=== PATIENT | female | born 1960 | race Caucasian/White ===

== ENCOUNTER 2016-09-16 21:45 | Emergency (ER) | payer SELFPAY | END 2016-09-16 23:11 | disposition left against medical advice (07) | LOC: ER 21:45 | DX: Z53.21 Procedure and treatment not carried out due to patient leaving prior to being seen by health care provider (principal) ==

== ENCOUNTER 2016-12-29 16:50 | Emergency (ER) | payer SELFPAY ==
[2016-12-29] MEDS ORDERED: ASPIRIN 81 MG TABLET, CHEWABLE PO ONE (17:12)
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
--- NOTE | 2016-12-29 18:06 | EKG REPORT ---
SEVERITY:- OTHERWISE NORMAL ECG - SINUS RHYTHM LOW VOLTAGE IN FRONTAL LEADS : Confirmed by: Ravi Cook MD 29-Dec-2016 18:05:43
[2016-12-29 18:28] LABS: ABSOLUTE BASOPHILS # (AUTO) 0.1 10^3/uL (0.0-0.2); ABSOLUTE EOSINOPHILS # (AUTO) 0.1 10^3/uL (0.0-0.6); ABSOLUTE LYMPHOCYTES (AUTO) 2.2 10^3/uL (0.5-4.7); ABSOLUTE MONOCYTES (AUTO) 0.6 10^3/uL (0.1-1.4); ABSOLUTE NEUT (AUTO) 7.2 10^3/uL (1.7-8.2); BASOPHILS % (AUTO) 0.8 % (0-2); EOSINOPHILS % (AUTO) 1.2 % (0-6); HEMATOCRIT 39.6 % (36.0-47.0); HEMOGLOBIN 13.8 g/dL (12.0-15.5); HGB HCT DIFFERENCE 1.8; LYMPHOCYTES % (AUTO) 21.4 % (13-45); MEAN CORPUSCULAR HEMOGLOBIN 31.5 pg (27.0-33.4); MEAN CORPUSCULAR HGB CONC 34.9 g/dL (32.0-36.0); MEAN CORPUSCULAR VOLUME 90 fl (80-97); MONOCYTES % (AUTO) 5.7 % (3-13); RED BLOOD COUNT 4.39 10^6/uL (3.72-5.28); RED CELL DISTRIBUTION WIDTH 13.4 % (11.5-14.0); SEGMENTED NEUTROPHILS % (AUTO) 70.9 % (42-78); WHITE BLOOD COUNT 10.2 10^3/uL (4.0-10.5)
[2016-12-29 18:37] LABS: PROTHROMBIN TIME 12.7 SEC (11.4-15.4)
[2016-12-29 18:48] LABS: ALANINE AMINOTRANSFERASE 26 U/L (9-52); ALBUMIN 4.3 g/dL (3.5-5.0); ALKALINE PHOSPHATASE 91 U/L (38-126); ANION GAP 12 (5-19); ASPARTATE AMINO TRANSFERASE 19 U/L (14-36); BILIRUBIN,DIRECT 0.1 mg/dL (0.0-0.4); BILIRUBIN,TOTAL 0.8 mg/dL (0.2-1.3); BLOOD UREA NITROGEN 12 mg/dL (7-20); CALCIUM 9.4 mg/dL (8.4-10.2); CARBON DIOXIDE 26 mmol/L (22-30); CHLORIDE 104 mmol/L (98-107); CREATINE KINASE 41 U/L (30-135); CREATININE RESULT 0.57 mg/dL (0.52-1.25); GLUCOSE 99 mg/dL (75-110); POTASSIUM 3.8 mmol/L (3.6-5.0); SODIUM 142.4 mmol/L (137-145); TOTAL PROTEIN 7.1 g/dL (6.3-8.2)
[2016-12-29 19:00] LABS: CREATINE KINASE MB < 0.22 ng/mL (<4.55); TROPONIN I < 0.012 ng/mL
[2016-12-29] MEDS ORDERED: ACETAMINOPHEN WITH CODEINE 120-12 MG/5 ML UDCUP PO ONE (19:09)
[2016-12-29] MEDS ORDERED: KETOROLAC TROMETHAMINE 60 MG/2 ML SDV IV ONE (20:00)
[2016-12-29 20:37] VITALS: BP 139/88
== END 2016-12-29 20:25 | disposition home or self-care (01) ==
LOC: ER 16:50
DX: R07.9 Chest pain, unspecified (principal); R07.89 Other chest pain; M54.5 Low back pain; F17.210 Nicotine dependence, cigarettes, uncomplicated; V87.7XXA Person injured in collision between other specified motor vehicles (traffic), initial encounter
CPT/HCPCS: 36415; 71010; 80053; 82550; 82553; 84484; 85025; 85610; 93005; 93010; 99285; J3490

== ENCOUNTER 2017-09-14 16:51 | Emergency (ER) | payer SELFPAY ==
[2017-09-14 17:08] VITALS: BP 143/77
[2017-09-14] MEDS ORDERED: NORMAL SALINE 1000 ML 1,000 ML IV ONE (18:30)
--- NOTE | 2017-09-14 18:31 | ER Document Report ---
ED Medical Screen (RME) - General Chief Complaint: Vomiting Stated Complaint: DIZZY, VOMITING Time Seen by Provider: 09/14/17 18:29 Information source: Patient Notes: 57-year-old female who presents today with the onset yesterday of a mild frontal headache and some "dizziness". When I asked her to describe this she explains both lightheadedness and vertigo. She denies any blurry vision, neck pain, chest pain, abdominal pain, weakness or numbness. She does state some nausea and vomiting without diarrhea. TRAVEL OUTSIDE OF THE [place] IN LAST 30 DAYS: No - Related Data Allergies/Adverse Reactions: No Known Allergies Allergy (Verified 09/14/17 16:52) Past Medical History - Past Medical History Cardiac Medical History: Reports: Hx Hypertension - not taking meds Pulmonary Medical History: Reports: Hx Bronchitis, Hx COPD Renal/ Medical History: Denies: Hx Peritoneal Dialysis Musculoskeltal Medical History: Reports Hx Arthritis Psychiatric Medical History: Reports: Hx Depression Past Surgical History: Reports: Hx Gynecologic Surgery - part of cervix, Hx Hysterectomy - partial - Immunizations Hx Diphtheria, Pertussis, Tetanus Vaccination: Yes Physical Exam - Vital signs Vitals: Temp Pulse Resp BP Pulse Ox 98.5 F 73 20 143/77 H 98 09/14/17 17:05 09/14/17 17:05 09/14/17 17:05 09/14/17 17:05 09/14/17 17:05 Course - Vital Signs Vital signs: Temp Pulse Resp BP Pulse Ox 98.5 F 73 20 143/77 H 98 09/14/17 17:05 09/14/17 17:05 09/14/17 17:05 09/14/17 17:05 09/14/17 17:05
--- NOTE | 2017-09-14 18:43 | ER Document Report ---
ED Medical Screen (RME) - General Chief Complaint: Vomiting Stated Complaint: DIZZY, VOMITING Time Seen by Provider: 09/14/17 18:29 Information source: Patient Notes: 57-year-old female who presents today with the onset yesterday of a mild frontal headache and some "dizziness". When I asked her to describe this she explains both lightheadedness and vertigo. She denies any blurry vision, neck pain, chest pain, abdominal pain, weakness or numbness. She does state some nausea and vomiting without diarrhea. TRAVEL OUTSIDE OF THE [place] IN LAST 30 DAYS: No - HPI Onset: Other - See above Onset/Duration: Gradual Quality of pain: Achy Severity: Mild Pain Level: 1 Associated Symptoms: Other - See above Exacerbated by: Denies Relieved by: Denies Similar symptoms previously: Yes Recently seen / treated by doctor: No - Related Data Allergies/Adverse Reactions: No Known Allergies Allergy (Verified 09/14/17 16:52) Past Medical History - General Information source: Patient - Social History Cigarette use (# per day): No Chew tobacco use (# tins/day): No Frequency of alcohol use: None Drug Abuse: None Family history: CVA - Past Medical History Cardiac Medical History: Reports: Hx Hypertension - not taking meds Pulmonary Medical History: Reports: Hx Bronchitis, Hx COPD Renal/ Medical History: Denies: Hx Peritoneal Dialysis Musculoskeltal Medical History: Reports Hx Arthritis Psychiatric Medical History: Reports: Hx Depression Past Surgical History: Reports: Hx Gynecologic Surgery - part of cervix, Hx Hysterectomy - Immunizations Hx Diphtheria, Pertussis, Tetanus Vaccination: Yes Review of Systems - Review of Systems Constitutional: denies: Fever EENT: denies: Eye discharge, Nose discharge Cardiovascular: denies: Chest pain, Palpitations Respiratory: denies: Cough, Short of breath Gastrointestinal: Vomiting Genitourinary: denies: Dysuria Musculoskeletal: denies: Leg swelling Skin: Other - no hives. denies: Rash -: Yes All other systems reviewed and negative Physical Exam - Vital signs Vitals: Temp Pulse Resp BP Pulse Ox 98.5 F 73 20 143/77 H 98 09/14/17 17:05 09/14/17 17:05 09/14/17 17:05 09/14/17 17:05 09/14/17 17:05 Notes: Reviewed vital signs and nursing note as charted by RN. CONSTITUTIONAL: Alert and oriented and responds appropriately to questions. Well -appearing; well-nourished HEAD: Normocephalic; atraumatic EYES: PERRL; Conjunctivae clear, sclerae non-icteric ENT: Normal nose; no rhinorrhea; moist mucous membranes; pharynx without lesions noted NECK: Supple without meningismus; carotid bruit; non-tender; no cervical lymphadenopathy, no masses CARD: Regular rate and rhythm; no murmurs RESP: Normal chest excursion without splinting or tachypnea; breath sounds clear and equal bilaterally ABD/GI: Normal bowel sounds; non-distended; soft, non-tender BACK: The back appears normal and is non-tender to palpation, there is no CVA tenderness EXT: Normal ROM in all joints; non-tender to palpation; no cyanosis, no effusions, no edema SKIN: No acute lesions noted NEURO: CN II through XII are intact. Patient has 5 out of 5 bilateral upper and lower extremity strength with sensation intact light touch. No nystagmus. Normal finger to nose Course - Re-evaluation Re-evalutation: 09/14/17 18:40 Given the above history and physical examination, I would like to rule out the possibility of a CVA causing the vertigo as well as an EKG, basic labs, with reassessment. Patient is very upset that she had a weight in the waiting room greater than 1 hour. She feels that she would like to be in a room and not in the triage room. I have explained to her that this helps expedite the process so when a room is ready laboratory values and imaging already. Patient states that she knows that she has "vertigo" she has had this before. I have explained to her that I would like to rule out the possibility of a more serious concern given the signs and symptoms of vertigo that often mimic a posterior stroke. I have explained to her that if the workup is unremarkable, I will indeed treat her for vertigo. Despite our attempts to make the patient stay for complete workup she is leaving AGAINST MEDICAL ADVICE. She understands the risks and benefits. Patient is oriented 4 and has capacity to make this decision in my judgment. She has been welcomed to return at any time that she would like for further assessment. - Vital Signs Vital signs: Temp Pulse Resp BP Pulse Ox 98.5 F 73 20 143/77 H 98 09/14/17 17:05 09/14/17 17:05 09/14/17 17:05 09/14/17 17:05 09/14/17 17:05 Doctor's Discharge - Discharge Clinical Impression: Dizziness Vomiting Qualifiers: Vomiting type: unspecified Vomiting Intractability: non-intractable Nausea presence: with nausea Qualified Code(s): R11.2 - Nausea with vomiting, unspecified Condition: Fair Disposition: AGAINST MEDICAL ADVICE Additional Instructions: Please feel free to return at anytime that you would like for further assessment and evaluation. Please make sure you follow-up with your primary care physician as we have discussed. Prescriptions: Meclizine HCl [Antivert 25 mg Tablet] 25 mg PO TID PRN #21 tablet PRN Reason:
--- NOTE | 2017-09-17 09:30 | EKG REPORT ---
SEVERITY:- NORMAL ECG - SINUS RHYTHM : Confirmed by: Bay Nazario 17-Sep-2017 09:29:09
== END 2017-09-14 18:45 | disposition left against medical advice (07) ==
LOC: ER 16:51
DX: R42 Dizziness and giddiness (principal); R51 Headache; R11.2 Nausea with vomiting, unspecified; I10 Essential (primary) hypertension; J44.9 Chronic obstructive pulmonary disease, unspecified
CPT/HCPCS: 93005; 93010; 99284

== ENCOUNTER 2017-09-15 16:18 | Emergency (ER) | payer SELFPAY ==
[2017-09-15 17:02] VITALS: BP 168/78
[2017-09-15] MEDS ORDERED: MECLIZINE HCL 25 MG TABLET PO ONE (17:05)
[2017-09-15] MEDS ORDERED: ONDANSETRON 4 MG TAB.RAPDIS PO ONE (17:05)
--- NOTE | 2017-09-15 17:09 | ER Document Report ---
ED Medical Screen (E) - General Chief Complaint: Nausea/Vomiting Stated Complaint: NAUSEA AND VOMITING Time Seen by Provider: 09/15/17 16:58 Notes: This 57-year-old female patient comes emergency room complaining of nausea vomiting dizziness. She was seen here last night for this, seen in the [facility] area. She did have a prescription of meclizine written. She did refused to have a workup for possible posterior circulation stroke. He was certain it was just vertigo according to the records from last night. She did get a prescription for meclizine but did not fill it and has been taking nothing. She is complaining about her symptoms getting worse, but does admit that she is taking nothing for it. She states when she turns her head the dizziness gets much worse. She seemed to be a difficult, very angry person. I have greeted and performed a rapid initial assessment of this patient. A comprehensive ED assessment and evaluation of the patient, analysis of test results and completion of the medical decision making process will be conducted by additional ED providers. TRAVEL OUTSIDE OF THE [place] IN LAST 30 DAYS: No - Related Data Allergies/Adverse Reactions: No Known Allergies Allergy (Verified 09/15/17 16:23) Past Medical History - Social History Chew tobacco use (# tins/day): No Frequency of alcohol use: None Drug Abuse: None Family history: CVA - Past Medical History Cardiac Medical History: Reports: Hx Hypertension - not taking meds Pulmonary Medical History: Reports: Hx Bronchitis, Hx COPD Renal/ Medical History: Denies: Hx Peritoneal Dialysis Musculoskeltal Medical History: Reports Hx Arthritis Psychiatric Medical History: Reports: Hx Depression Past Surgical History: Reports: Hx Gynecologic Surgery - part of cervix, Hx Hysterectomy - Immunizations Hx Diphtheria, Pertussis, Tetanus Vaccination: Yes Physical Exam - Vital signs Vitals: Temp Pulse Resp BP Pulse Ox 98.5 F 70 18 168/78 H 99 09/15/17 17:01 09/15/17 17:01 09/15/17 17:01 09/15/17 17:01 09/15/17 17:01 Course - Vital Signs Vital signs: Temp Pulse Resp BP Pulse Ox 98.5 F 70 18 168/78 H 99 09/15/17 17:01 09/15/17 17:01 09/15/17 17:01 09/15/17 17:01 09/15/17 17:01
--- NOTE | 2017-09-15 19:29 | ER Document Report ---
ED General - General Chief Complaint: Nausea/Vomiting Stated Complaint: NAUSEA AND VOMITING Time Seen by Provider: 09/15/17 16:58 TRAVEL OUTSIDE OF THE [place] IN LAST 30 DAYS: No - HPI Notes: Patient is a 57-year-old female with a history of hypertension who presents the ED complaining of 2 days of feeling dizzy, nausea/vomiting without abdominal pain, and a right frontal mild headache. Patient was evaluated yesterday while in the ED and left AMA. The provider yesterday wanted to perform labs and imaging to rule out posterior CVA and other etiologies before diagnosing vertigo , but patient declined. Patient returns today stating that her dizziness has increased she has not been able to keep any fluids or food down. Patient states that she is still urinating and having normal bowel movements. Patient states that she has occasional nasal congestion patient states that the dizziness is worse with. Sitting and standing, and is improved with lying down. Patient states that she did have some medicine when she arrived to the ED today, Zofran and meclizine, which helped. Patient states that she is open to having testing performed today. She denies any drug allergies. Denies any cardiac history, CVA, TIA, cancer, blood clots. Denies any fever, head injury, neck pain, changes in vision/speech/mentation/hearing, sore throat, chest pain, palpitations, syncope, cough, shortness of breath, wheeze, dyspnea, abdominal pain, nausea/vomiting/diarrhea, urinary retention, dysuria, hematuria, loss of control of bowel or bladder, numbness/tingling, saddle anesthesia, muscle paralysis/weakness, or rash. - Related Data Allergies/Adverse Reactions: No Known Allergies Allergy (Verified 09/15/17 16:23) Past Medical History - Social History Smoking Status: Never Smoker Chew tobacco use (# tins/day): No Frequency of alcohol use: None Drug Abuse: None Family History: Reviewed & Not Pertinent Patient has suicidal ideation: No Patient has homicidal ideation: No - Past Medical History Cardiac Medical History: Reports: Hx Hypertension - not taking meds Pulmonary Medical History: Reports: Hx Bronchitis, Hx COPD Renal/ Medical History: Denies: Hx Peritoneal Dialysis Musculoskeltal Medical History: Reports Hx Arthritis Psychiatric Medical History: Reports: Hx Depression Past Surgical History: Reports: Hx Gynecologic Surgery - part of cervix, Hx Hysterectomy - Immunizations Hx Diphtheria, Pertussis, Tetanus Vaccination: Yes Review of Systems - Review of Systems Notes: REVIEW OF SYSTEMS: CONSTITUTIONAL : Denies fever, chills, or sweats. Denies recent illness. EENT: see hpi CARDIOVASCULAR: Denies chest pain. Denies palpitations or racing or irregular heart beat. Denies ankle edema. RESPIRATORY: Denies cough, cold, or chest congestion. Denies shortness of breath, difficulty breathing, or wheezing. GASTROINTESTINAL: see hpi GENITOURINARY: Denies difficulty urinating, painful urination, burning, frequency, blood in urine, or discharge. MUSCULOSKELETAL: Denies back or neck pain or stiffness. Denies joint pain or swelling. SKIN: Denies rash, lesions or sores. NEUROLOGICAL: see hpi. Denies confusion or altered mental status. Denies passing out or loss of consciousness. Denies weakness or paralysis or loss of use of either side. Denies problems with gait or speech. Denies sensory loss, numbness, or tingling. Denies seizures. PSYCHIATRIC: Denies anxiety or stress. Denies depression, suicidal ideation, or homicidal ideation. ALL OTHER SYSTEMS REVIEWED AND NEGATIVE. Dictation was performed using [employer] voice recognition software Physical Exam - Vital signs Vitals: Temp Pulse Resp BP Pulse Ox 98.5 F 70 18 168/78 H 99 09/15/17 17:01 09/15/17 17:01 09/15/17 17:01 09/15/17 17:01 09/15/17 17:01 Notes: PHYSICAL EXAMINATION: GENERAL: Well-appearing, well-nourished and in no acute distress. A&Ox4 HEAD: Atraumatic, normocephalic. Non-tender. No martin sign EYES: Pupils equal round and reactive to light, extraocular movements intact, sclera anicteric, conjunctiva are normal. No nystagmus. vis goodman intact. ENT: EAC clear b/l. TM's intact b/l without erythema, fluid, or perforation. Nares patent and without discharge. oropharynx clear without exudates. No tonsilar hypertrophy or erythema. Moist mucous membranes. No sinus tenderness. NECK: Normal range of motion, supple without lymphadenopathy. No rigidity. No midline tenderness. Spurling negative. LUNGS: Breath sounds clear to auscultation bilaterally and equal. No wheezes rales or rhonchi. HEART: Regular rate and rhythm without murmurs, rubs, gallops. ABDOMEN: Soft, nontender, nondistended abdomen. No guarding, no rebound. No masses appreciated. Normal bowel sounds present. No CVA tenderness bilaterally. Musculoskeletal: Ext b/l: FROM to passive/active. Strength 5+/5. No deficits noted. No bony tenderness of extremities. Back: FROM to passive/active. Strength 5+/5. No vertebral point tenderness, stepoffs, or deformities. No other bony tenderness or ecchymosis. Extremities: No cyanosis, clubbing, or edema b/l. Peripheral pulses 2+. Capillary refill less than 2 seconds. NEUROLOGICAL: GCS 15. NIH 0. MMSE intact. Cranial nerves grossly intact. Normal speech, normal gait. Normal sensory, motor exams. Reflexes 2+ b/l. SARINA' s negative. Pronator drift negative. Heel/miller, finger/nose wnl. PSYCH: Normal mood, normal affect. SKIN: Warm, Dry, normal turgor, no rashes or lesions noted. Course - Re-evaluation Re-evalutation: 09/15/17 21:18 Patient is an afebrile, well-hydrated, 57-year-old female who presents to the ED with vertigo, possible gastroenteritis, and acute UTI based on H&P today. Vitals are stable. PE is otherwise unremarkable. Pt is tolerating PO and has not vomited while in the ED. Her abdominal exam was unremarkable. Patient has no focal neurological deficits, GCS 15, MMSE intact, & NIH 0. CT scan of the head was unremarkable for acute pathology. EKG, CBC, CMP, lipase unremarkable for any acute pathology. See urinalysis results. Urine culture is pending. Patient was given 2 L normal saline today as well as Zofran and meclizine. Patient does have a prescription at home for her meclizine. Rocephin 1 g given IV today along with her first dose of Keflex. Low suspicion for any acute glaucoma, temporal arteritis, meningitis, intracranial hemorrhage, ischemic stroke, fracture, acute appendicitis, bowel obstruction, acute cholecystitis, acute cholangitis, perforated diverticulitis, incarcerated hernia, pancreatitis , perforated ulcer, peritonitis, sepsis, pelvic inflammatory disease, ectopic , tubo-ovarian abscess, ovarian torsion, or other systemic emergent condition at this time. Patient is aware that her condition can change from initial presentation and she needs to monitor symptoms closely and seek medical attention if any acute changes. I will send her home with a Rx for Keflex to take as directed. Conservative measures otherwise for symptoms. Recheck with your PCM in 3-5 days. Consider consult with a publicity writer. Return to the ED with any worsening/concerning symptoms otherwise as reviewed in discharge. Patient is in agreement. Reviewed with Dr. Veliz who is in agreement with discharge/plan. - Vital Signs Vital signs: Temp Pulse Resp BP Pulse Ox 98.5 F 70 18 168/78 H 99 09/15/17 17:01 09/15/17 17:01 09/15/17 17:01 09/15/17 17:01 09/15/17 17:01 - Laboratory Result Diagrams: 09/15/17 20:20 09/15/17 20:20 Laboratory results interpreted by me: 09/15/17 09/15/17 09/15/17 20:20 20:20 20:20 Seg Neutrophils % 83.2 H Monocytes % 2.5 L Glucose 115 H Calcium 10.5 H Urine Protein 100 H Urine Ketones 20 H Urine Urobilinogen 4.0 H Ur Leukocyte Esterase TRACE H Discharge - Discharge Clinical Impression: Acute UTI, Vertigo, Gastroenteritis Condition: Stable Disposition: HOME, SELF-CARE Instructions: Antinausea Medication ([facility]), Cephalexin ([facility]), Gastroenteritis ( adult) ([facility]), Urinary Tract Infection ([facility]), Vertigo ([facility]), Vomiting ([facility]) Additional Instructions: Push fluids (i.e. water, cranberry juice) Proper hygenic technique Fraser diet (Bananas, rice, apples, toast, etc) Keep the skin clean Tylenol as needed May use over the counter AZO for burning with urination Take medications as directed F/u with your PCM in 3-5 days for a recheck Consider consult with a Urologist/Neurologist for ongoing/worsening symptoms. Return to the ED with any worsening symptoms and/or development of fever, headache, chest pain, palpitations, syncope, shortness of breath, trouble breathing, abdominal pain, n/v/d, blood in stool/urine, loss of control of bowel /bladder, urinary retention, or other worsening symptoms that are concerning to you. Prescriptions: Cephalexin Monohydrate [Keflex 500 mg Capsule] 500 mg PO BID #14 capsule Ondansetron [Zofran Odt 4 mg Tablet] 1 - 2 tab PO Q4H PRN #15 tab.rapdis PRN Reason: For Nausea/Vomiting Forms: Elevated Blood Pressure Referrals: FLORES FERREIRA MD [[facility]] - Follow up as needed [facility] [Provider Group] - Follow up as needed
--- NOTE | 2017-09-15 20:26 | RADIOLOGY REPORT (SQ) ---
EXAM DESCRIPTION: CT HEAD WITHOUT COMPLETED DATE/TIME: 09/15/2017 8:14 pm REASON FOR STUDY: dizziness COMPARISON: June 2016 TECHNIQUE: Axial images acquired through the brain without intravenous contrast. Images reviewed wi th bone, brain and subdural windows. Images stored on PACS. All CT scanners at this facility use dose modulation, iterative reconstruction, and/or weight based d osing when appropriate to reduce radiation dose to as low as reasonably achievable (ALARA). [facility]: Dose Right [facility]: CareDose [facility]: Dose Right [facility]: Teradose 4D [facility]: Sphere [employer]uidics RADIATION DOSE: CT Rad equipment meets quality standard of care and radiation dose reduction techniq ues were employed. CTDIvol: 64.6 mGy. DLP: 1034 mGy-cm. mGy. LIMITATIONS: None. FINDINGS: VENTRICLES: Normal size and contour. CEREBRUM: No masses. No hemorrhage. No midline shift. No evidence for acute infarction. Normal gra y/white matter differentiation. No areas of low density in the white matter. CEREBELLUM: No masses. No hemorrhage. No alteration of density. No evidence for acute infarction. EXTRAAXIAL SPACES: No fluid collections. No masses. ORBITS AND GLOBE: No intra- or extraconal masses. Normal contour of globe without masses. CALVARIUM: No fracture. PARANASAL SINUSES: Mucosal polyp retention cyst is identified in the left maxillary antra. SOFT TISSUES: No mass or hematoma. OTHER: No other significant finding. IMPRESSION: NORMAL BRAIN CT WITHOUT CONTRAST. EVIDENCE OF ACUTE STROKE: NO. COMMENT: Quality ID # [id number]: Final reports with documentation of one or more dose reduction techniques (e.g., Automated exposure control, adjustment of the mA and/or kV according to patient size, use of iterative reconstruction technique) TECHNICAL DOCUMENTATION: JOB ID: [id number]- All Rights Reserved
[2017-09-15] MEDS ORDERED: NORMAL SALINE 1000 ML 1,000 ML IV PRN (20:32)
[2017-09-15 20:43] LABS: ABSOLUTE LYMPHOCYTES (AUTO) 1.3 10^3/uL (0.5-4.7); ABSOLUTE MONOCYTES (AUTO) 0.2 10^3/uL (0.1-1.4); BASOPHILS % (AUTO) 0.5 % (0-2); EOSINOPHILS % (AUTO) 0.1 % (0-6); HEMATOCRIT 44.7 % (36.0-47.0); HEMOGLOBIN 15.4 g/dL (12.0-15.5); LYMPHOCYTES % (AUTO) 13.7 % (13-45); MEAN CORPUSCULAR HEMOGLOBIN 31.4 pg (27.0-33.4); MEAN CORPUSCULAR HGB CONC 34.4 g/dL (32.0-36.0); MEAN CORPUSCULAR VOLUME 91 fl (80-97); MONOCYTES % (AUTO) 2.5 % (3-13); PLATELET COUNT 227 10^3/uL (150-450); RED BLOOD COUNT 4.89 10^6/uL (3.72-5.28); RED CELL DISTRIBUTION WIDTH 13.1 % (11.5-14.0); SEGMENTED NEUTROPHILS % (AUTO) 83.2 % (42-78); TOTAL CELLS COUNTED % (AUTO) 100 %; WHITE BLOOD COUNT 9.6 10^3/uL (4.0-10.5)
[2017-09-15 20:57] LABS: APPEARANCE,URINE CLOUDY; BILIRUBIN,URINE NEGATIVE (NEGATIVE); GLUCOSE, URINE NEGATIVE (NEGATIVE); KETONES,URINE 20 mg/dL (NEGATIVE); LEUKOCYTE ESTERASE,URINE TRACE (NEGATIVE); NITRITE,URINE NEGATIVE (NEGATIVE); PROTEIN,URINE 100 mg/dL (NEGATIVE); URINE SPECIFIC GRAVITY 1.019
[2017-09-15 21:01] LABS: COLOR,URINE DARK YELLOW
[2017-09-15 21:07] LABS: ALBUMIN 4.5 g/dL (3.5-5.0); ANION GAP 15 (5-19); BLOOD UREA NITROGEN 14 mg/dL (7-20); CALCIUM 10.5 mg/dL (8.4-10.2); CARBON DIOXIDE 24 mmol/L (22-30); CHLORIDE 105 mmol/L (98-107); GLUCOSE 115 mg/dL (75-110); POTASSIUM 3.9 mmol/L (3.6-5.0); SODIUM 143.7 mmol/L (137-145); TOTAL PROTEIN 7.6 g/dL (6.3-8.2)
[2017-09-15 21:08] LABS: ALANINE AMINOTRANSFERASE 30 U/L (9-52); ALKALINE PHOSPHATASE 86 U/L (38-126); ASPARTATE AMINO TRANSFERASE 17 U/L (14-36); BILIRUBIN,DIRECT 0.3 mg/dL (0.0-0.4); BILIRUBIN,TOTAL 1.3 mg/dL (0.2-1.3); LIPASE 75.4 U/L (23-300)
[2017-09-15] MEDS ORDERED: LIDOCAINE 1% INJ-PF (10 MG/ML) 30 ML SDV INJ ONE (21:17)
[2017-09-15] MEDS ORDERED: CEFTRIAXONE INJ 1000 MG VIAL IV ONE (21:17)
[2017-09-15] MEDS ORDERED: CEPHALEXIN 500 MG CAPSULE PO ONE (21:17)
[2017-09-15] MEDS ORDERED: CEFTRIAXONE 1 GM/D5W RTU 1 GM/50 ML RTUPB IV ONE ×2 (21:34)
== END 2017-09-15 22:20 | disposition home or self-care (01) ==
LOC: ER 16:18
DX: N39.0 Urinary tract infection, site not specified (principal); K52.9 Noninfective gastroenteritis and colitis, unspecified; R42 Dizziness and giddiness; R11.2 Nausea with vomiting, unspecified; I10 Essential (primary) hypertension; R10.9 Unspecified abdominal pain; R51 Headache
CPT/HCPCS: 99284; 96361; 96374; 36415; 87086; 83690; 85025; 87088; 80053; 81001; 87186; 70450; S0119; J7030; J0696

== ENCOUNTER 2018-03-17 12:42 | Emergency (ER) | payer SELFPAY ==
[2018-03-17] MEDS ORDERED: MECLIZINE HCL 25 MG TABLET PO ONE ×2 (13:24→14:23)
--- NOTE | 2018-03-17 13:25 | ER Document Report ---
ED Medical Screen (RME) - General Chief Complaint: Dizziness Stated Complaint: DIZZINESS/HEADACHE Time Seen by Provider: 03/17/18 13:14 Mode of Arrival: Wheelchair Information source: Patient Notes: 58-year-old female presents with complaints of dizziness lightheadedness. Patient notes symptoms like this happen every 5-6 months usually associated with UTI. Patient denies any urinary symptoms at this time, she denies any chest pain admits to mild headache associated with I have greeted and performed a rapid initial assessment of this patient. A comprehensive ED assessment and evaluation of the patient, analysis of test results and completion of the medical decision making process will be conducted by additional ED providers. PHYSICAL EXAMINATION: GENERAL: Well-appearing, well-nourished and in no acute distress. HEAD: Atraumatic, normocephalic. EYES: Pupils equal round extraocular movements intact, conjunctiva are normal. ENT: Nares patent NECK: Normal range of motion LUNGS: No respiratory distress Musculoskeletal: Normal range of motion NEUROLOGICAL: Normal speech PSYCH: Normal mood, normal affect. SKIN: Warm, Dry, normal turgor, no rashes or lesions noted. TRAVEL OUTSIDE OF THE [place] IN LAST 30 DAYS: No - Related Data Allergies/Adverse Reactions: No Known Allergies Allergy (Verified 03/17/18 13:12) Past Medical History - Social History Chew tobacco use (# tins/day): No Frequency of alcohol use: None Drug Abuse: None Family history: CVA - Past Medical History Cardiac Medical History: Reports: Hx Hypertension - not taking meds Pulmonary Medical History: Reports: Hx Bronchitis, Hx COPD Renal/ Medical History: Denies: Hx Peritoneal Dialysis Musculoskeltal Medical History: Reports Hx Arthritis Psychiatric Medical History: Reports: Hx Depression Past Surgical History: Reports: Hx Gynecologic Surgery - part of cervix, Hx Hysterectomy - Immunizations Hx Diphtheria, Pertussis, Tetanus Vaccination: Yes Physical Exam - Vital signs Vitals: Temp Pulse Resp BP Pulse Ox 98.0 F 72 20 154/78 H 99 03/17/18 12:58 03/17/18 12:58 03/17/18 12:58 03/17/18 12:58 03/17/18 12:58 Course - Vital Signs Vital signs: Temp Pulse Resp BP Pulse Ox 98.0 F 72 20 154/78 H 99 03/17/18 12:58 03/17/18 12:58 03/17/18 12:58 03/17/18 12:58 03/17/18 12:58
--- NOTE | 2018-03-17 13:53 | RADIOLOGY REPORT (SQ) ---
EXAM DESCRIPTION: CT HEAD WITHOUT COMPLETED DATE/TIME: 03/17/2018 1:36 pm REASON FOR STUDY: dizziness COMPARISON: 08/16/2017. TECHNIQUE: Axial images acquired through the brain without intravenous contrast. Images reviewed wi th bone, brain and subdural windows. Images stored on PACS. All CT scanners at this facility use dose modulation, iterative reconstruction, and/or weight based d osing when appropriate to reduce radiation dose to as low as reasonably achievable (ALARA). [facility]: Dose Right [facility]: CareDose [facility]: Dose Right [facility]: Teradose 4D [facility]: Smart [employer] RADIATION DOSE: CT Rad equipment meets quality standard of care and radiation dose reduction techniq ues were employed. CTDIvol: 53.2 mGy. DLP: 991 mGy-cm. mGy. LIMITATIONS: None. FINDINGS: VENTRICLES: Normal size and contour. CEREBRUM: No masses. No hemorrhage. No midline shift. No evidence for acute infarction. Normal gra y/white matter differentiation. No areas of low density in the white matter. CEREBELLUM: No masses. No hemorrhage. No alteration of density. No evidence for acute infarction. EXTRAAXIAL SPACES: No fluid collections. No masses. ORBITS AND GLOBE: No intra- or extraconal masses. Normal contour of globe without masses. CALVARIUM: No fracture. PARANASAL SINUSES: There is a retention cyst in the floor of the left maxillary sinus unchanged. Min imal mucosal thickening right maxillary sinus. Nasal septal deviation to the right. SOFT TISSUES: No mass or hematoma. OTHER: No other significant finding. IMPRESSION: CHRONIC SINUSITIS. OTHERWISE, NORMAL BRAIN CT WITHOUT CONTRAST. EVIDENCE OF ACUTE STROKE: NO. COMMENT: Quality ID # [id number]: Final reports with documentation of one or more dose reduction techniques (e.g., Automated exposure control, adjustment of the mA and/or kV according to patient size, use of iterative reconstruction technique) TECHNICAL DOCUMENTATION: JOB ID: [id number] ID-[id number] [employer]- All Rights Reserved Reading location - IP/workstation name: [email or web address]
[2018-03-17 14:04] LABS: APPEARANCE,URINE SLIGHTLY-CLOUDY; BILIRUBIN,URINE NEGATIVE (NEGATIVE); COLOR,URINE YELLOW; GLUCOSE, URINE NEGATIVE (NEGATIVE); KETONES,URINE NEGATIVE (NEGATIVE); LEUKOCYTE ESTERASE,URINE TRACE (NEGATIVE); NITRITE,URINE POSITIVE (NEGATIVE); PROTEIN,URINE NEGATIVE (NEGATIVE); URINE SPECIFIC GRAVITY 1.011
[2018-03-17 14:08] LABS: ABSOLUTE BASOPHILS # (AUTO) 0.1 10^3/uL (0.0-0.2); ABSOLUTE EOSINOPHILS # (AUTO) 0.1 10^3/uL (0.0-0.6); ABSOLUTE LYMPHOCYTES (AUTO) 1.7 10^3/uL (0.5-4.7); ABSOLUTE MONOCYTES (AUTO) 0.3 10^3/uL (0.1-1.4); ABSOLUTE NEUT (AUTO) 4.9 10^3/uL (1.7-8.2); BASOPHILS % (AUTO) 0.9 % (0-2); EOSINOPHILS % (AUTO) 1.8 % (0-6); HEMATOCRIT 42.4 % (36.0-47.0); HEMOGLOBIN 14.6 g/dL (12.0-15.5); LYMPHOCYTES % (AUTO) 23.6 % (13-45); MEAN CORPUSCULAR HEMOGLOBIN 31.6 pg (27.0-33.4); MEAN CORPUSCULAR HGB CONC 34.4 g/dL (32.0-36.0); MEAN CORPUSCULAR VOLUME 92 fl (80-97); MONOCYTES % (AUTO) 4.5 % (3-13); PLATELET COUNT 212 10^3/uL (150-450); RED BLOOD COUNT 4.61 10^6/uL (3.72-5.28); RED CELL DISTRIBUTION WIDTH 13.2 % (11.5-14.0); SEGMENTED NEUTROPHILS % (AUTO) 69.2 % (42-78); TOTAL CELLS COUNTED % (AUTO) 100 %; WHITE BLOOD COUNT 7.1 10^3/uL (4.0-10.5)
--- NOTE | 2018-03-17 14:24 | ER Document Report ---
ED Dizziness/Weakness - General Mode of Arrival: Wheelchair Information source: Patient TRAVEL OUTSIDE OF THE [place] IN LAST 30 DAYS: No <MAHI MCCAIN - Last Filed: 03/17/18 15:13> <MARITA VALENTIN - Last Filed: 03/19/18 19:13> - General Chief Complaint: Dizziness Stated Complaint: DIZZINESS/HEADACHE Time Seen by Provider: 03/17/18 13:14 Notes: 58-year-old female presenting today with complaints of intermittent dizziness. Patient states she has had dizziness off and on 2-4 times a month for the last several years. Patient states that last night when going to bed she had a funny feeling in her head and today upon awakening she felt lightheaded. Patient denies a history of ME or CVA. (MAHI MCCAIN) - Related Data Allergies/Adverse Reactions: No Known Allergies Allergy (Verified 03/17/18 13:12) Past Medical History - General Information source: Patient - Social History Smoking Status: Never Smoker Chew tobacco use (# tins/day): No Frequency of alcohol use: None Drug Abuse: None Family History: Reviewed & Not Pertinent Patient has suicidal ideation: No Patient has homicidal ideation: No - Past Medical History Cardiac Medical History: Reports: Hx Hypertension - not taking meds Pulmonary Medical History: Reports: Hx Bronchitis, Hx COPD Renal/ Medical History: Denies: Hx Peritoneal Dialysis Musculoskeltal Medical History: Reports Hx Arthritis Psychiatric Medical History: Reports: Hx Depression Past Surgical History: Reports: Hx Gynecologic Surgery - part of cervix, Hx Hysterectomy - Immunizations Hx Diphtheria, Pertussis, Tetanus Vaccination: Yes <MAHI MCCAIN - Last Filed: 03/17/18 15:13> - Vital signs Vitals: Temp Pulse Resp BP Pulse Ox 98.0 F 72 20 154/78 H 99 03/17/18 12:58 03/17/18 12:58 03/17/18 12:58 03/17/18 12:58 03/17/18 12:58 Course - Laboratory Result Diagrams: 03/17/18 13:45 03/17/18 13:45 <MAHI MCCAIN - Last Filed: 03/17/18 15:13> - Laboratory Result Diagrams: 03/17/18 13:45 03/17/18 13:45 - EKG Interpretation by Or EKG shows normal: Sinus rhythm Rate: Normal Rhythm: NSR When compared to previous EKG there are: No significant change <MARITA VALENTIN - Last Filed: 03/19/18 19:13> - Re-evaluation Re-evalutation: 03/17/18 15:01 Patient well-appearing in no acute distress. Her symptoms of dizziness are more vertiginous in nature and occur when she sits up quickly in bed. She has normal neurologic exam. Her CT does show signs of chronic sinusitis. Her symptoms have been going on for several years and happens several times a month. These symptoms do not appear strokelike in nature. Patient will be discharged with fluticasone nasal lasting due to her chronic sinusitis. She has no family doctor will be provided [facility] referral for follow-up in the next 1-2 weeks for reevaluation. Return precautions will be provided 03/17/18 15:03 Of note, she is nitrite positive will treat for urinary tract infection. (MARITA VALENTIN) - Vital Signs Vital signs: Temp Pulse Resp BP Pulse Ox 97.6 F 66 16 152/72 H 98 03/17/18 15:27 03/17/18 15:27 03/17/18 15:27 03/17/18 15:27 03/17/18 15:27 - Laboratory Laboratory results interpreted by me: 03/17/18 13:25 Urine Nitrite POSITIVE H Urine Urobilinogen 2.0 H Ur Leukocyte Esterase TRACE H Discharge <MAHI MCCAIN - Last Filed: 03/17/18 15:13> <MARITA VALENTIN - Last Filed: 03/19/18 19:13> - Discharge Clinical Impression: Chronic sinusitis Qualifiers: Sinusitis location: unspecified location Qualified Code(s): J32.9 - Chronic sinusitis, unspecified UTI (urinary tract infection) Qualifiers: Urinary tract infection type: site unspecified Hematuria presence: without hematuria Qualified Code(s): N39.0 - Urinary tract infection, site not specified Condition: Good Disposition: HOME, SELF-CARE Instructions: Cephalexin ([facility]), Meclizine ([facility]), Sinusitis ([facility]), Urinary Tract Infection ([facility]), Vertigo ([facility]) Prescriptions: Azelastine HCl 205.5 mcg NS BID #1 bottle Cephalexin Monohydrate [Keflex 500 mg Capsule] 500 mg PO Q6H 7 Days #28 capsule Fluticasone Propionate 50 mcg NS BID #1 bottle Forms: Parent Work Note Referrals: [facility] [NO LOCAL MD] - Follow up in 1 week (for re-evaluation) Scribe Attestation: 03/19/18 19:13 I personally performed the services described documentation, reviewed and edited the documentation which was dictated to describe my presence, and it accurately records my words and actions. (MARITA VALENTIN) Scribe Documentation - Scribe Written by Abraham:: Abraham Burnham, 03/17/2018 1517 acting as scribe for :: Yo <MAHI MCCAIN - Last Filed: 03/17/18 15:13>
[2018-03-17 14:32] LABS: ALANINE AMINOTRANSFERASE 19 U/L (9-52); ALBUMIN 4.4 g/dL (3.5-5.0); ALKALINE PHOSPHATASE 84 U/L (38-126); ANION GAP 11 (5-19); ASPARTATE AMINO TRANSFERASE 18 U/L (14-36); BILIRUBIN,DIRECT 0.4 mg/dL (0.0-0.4); BILIRUBIN,TOTAL 1.3 mg/dL (0.2-1.3); BLOOD UREA NITROGEN 11 mg/dL (7-20); CALCIUM 9.5 mg/dL (8.4-10.2); CARBON DIOXIDE 29 mmol/L (22-30); CHLORIDE 104 mmol/L (98-107); CREATINE KINASE 46 U/L (30-135); GLUCOSE 98 mg/dL (75-110); POTASSIUM 4.6 mmol/L (3.6-5.0); SODIUM 143.7 mmol/L (137-145); TOTAL PROTEIN 7.6 g/dL (6.3-8.2)
[2018-03-17 14:44] LABS: CREATINE KINASE MB 0.49 ng/mL (<4.55)
[2018-03-17 14:45] LABS: TROPONIN I < 0.012 ng/mL
[2018-03-17 15:42] VITALS: BP 152/72
--- NOTE | 2018-03-18 06:14 | EKG REPORT ---
SEVERITY:- NORMAL ECG - SINUS RHYTHM : Confirmed by: Ravi Cook MD 18-Mar-2018 06:13:34
== END 2018-03-17 15:45 | disposition home or self-care (01) ==
LOC: ER 12:42
DX: J32.9 Chronic sinusitis, unspecified (principal); N39.0 Urinary tract infection, site not specified; R42 Dizziness and giddiness; I10 Essential (primary) hypertension; J44.9 Chronic obstructive pulmonary disease, unspecified
CPT/HCPCS: 36415; 70450; 80053; 81001; 82550; 82553; 84484; 85025; 87086; 87088; 87186; 93005; 93010; 99284

== ENCOUNTER 2018-10-05 16:45 | Emergency (ER) | payer SELFPAY ==
--- NOTE | 2018-10-05 17:09 | ER Document Report ---
ED Respiratory Problem - General Mode of Arrival: Ambulatory Information source: Patient TRAVEL OUTSIDE OF THE [place] IN LAST 30 DAYS: No <MAHI MCCAIN - Last Filed: 10/05/18 19:20> <DARIUS TY - Last Filed: 10/05/18 19:26> <KIRK DYKES - Last Filed: 10/06/18 16:12> <FRED NOBLES - Last Filed: 10/06/18 16:26> - General Chief Complaint: Anxiety Stated Complaint: ANXIETY Time Seen by Provider: 10/05/18 16:56 Primary Care Provider: [facility] [Provider Group] - Follow up as needed Notes: 58-year-old female who presents to the emergency department today with complaints of a 3-day history of a "pounding" headache. Patient mentions she has had increased stress recently and is tearful intermittently throughout the exam. Patient states she has had associated chest pain, nausea, and dizziness. Patient mentions that she got 1 year ago and never had any anxiety or d epression until after the divorce. Patient states she feels that she has no one to take care of her and she does not want to stress out her kids. Patient states that this chest pain was present last night but eased off when she was with her son. Patient had chest pain again today but it did not start until her son dropped her back off at her house. Patient does have a history of anxiety and depression and mentions that she has no insurance now. (MAHI MCCAIN) - Related Data Allergies/Adverse Reactions: No Known Allergies Allergy (Verified 03/17/18 13:12) Past Medical History - General Information source: Patient - Social History Smoking Status: Current Every Day Smoker Cigarette use (# per day): Yes Family History: Reviewed & Not Pertinent Patient has suicidal ideation: No Patient has homicidal ideation: No - Past Medical History Cardiac Medical History: Reports: Hx Hypertension - not taking meds Pulmonary Medical History: Reports: Hx Bronchitis, Hx COPD Renal/ Medical History: Denies: Hx Peritoneal Dialysis Musculoskeletal Medical History: Reports Hx Arthritis Psychiatric Medical History: Reports: Hx Depression Past Surgical History: Reports: Hx Gynecologic Surgery - part of cervix, Hx Hysterectomy - Immunizations Hx Diphtheria, Pertussis, Tetanus Vaccination: Yes <MAHI MCCAIN - Last Filed: 10/05/18 19:20> Review of Systems - Review of Systems Constitutional: No symptoms reported EENT: No symptoms reported Cardiovascular: See HPI, Chest pain, Dizziness Respiratory: No symptoms reported Gastrointestinal: See HPI, Nausea Genitourinary: No symptoms reported Female Genitourinary: No symptoms reported Musculoskeletal: No symptoms reported Skin: No symptoms reported Hematologic/Lymphatic: No symptoms reported Neurological/Psychological: See HPI, Headaches -: Yes All other systems reviewed and negative <MAHI MCCAIN - Last Filed: 10/05/18 19:20> Physical Exam <MAHI MCCAIN - Last Filed: 10/05/18 19:20> - Vital signs Vitals: Temp Pulse Resp BP Pulse Ox 98 F 73 24 H 184/89 H 98 10/05/18 17:01 10/05/18 17:01 10/05/18 17:01 10/05/18 17:01 10/05/18 17:01 - Notes Notes: PHYSICAL EXAM GENERAL: Alert, interacts well. Crying. HEAD: Normocephalic, atraumatic. EYES: Pupils equal, round, and reactive to light. Extraocular movements intact. ENT: Oral mucosa moist, tongue midline. NECK: Full range of motion. Supple. Trachea midline. LUNGS: Clear to auscultation bilaterally, no wheezes, rales, or rhonchi. No respiratory distress. HEART: Regular rate and rhythm. No murmurs, gallops, or rubs. ABDOMEN: Soft, non-tender. Non-distended. Bowel sounds present in all 4 quadrants. No guarding, rigidity, or rebound. EXTREMITIES: Moves all 4 extremities spontaneously. No edema, radial and dorsalis pedis pulses 2/4 bilaterally. No cyanosis. NEUROLOGICAL: Alert and oriented x3. Normal speech. PSYCH: Tearful intermittently, appears anxious and depressed. SKIN: Warm, dry, normal turgor. No rashes or lesions noted. (MAHI MCCAIN) Course - Laboratory Result Diagrams: 10/05/18 17:58 10/05/18 17:58 <MAHI MCCAIN - Last Filed: 10/05/18 19:20> - Laboratory Result Diagrams: 10/05/18 17:58 10/05/18 17:58 <DARIUS TY - Last Filed: 10/05/18 19:26> - Laboratory Result Diagrams: 10/05/18 17:58 10/05/18 17:58 <KIRK DYKES - Last Filed: 10/06/18 16:12> - Laboratory Result Diagrams: 10/05/18 17:58 10/05/18 17:58 <FRED NOBLES - Last Filed: 10/06/18 16:26> - Re-evaluation Re-evalutation: 10/05/18 19:26 CBC unremarkable, CMP grossly unremarkable, slightly low potassium at 3.5, cardiac enzymes negative, leukocyte esterase is urinalysis shows trace leukocyte esterase, 3+ bacteria but there is 19 squamous epithelial cells, this is likely contaminated, patient is 4.1 salicylates, when questioned about this she states she took Excedrin at her son's house however we will recheck a level in approximately 4 hours, urine drug screen negative, acetaminophen and alcohol are undetectable, chest x-ray shows no acute process. Repeat troponin will also be checked however this patient's intermittent chest pain, headache, nausea is much more consistent with anxiety than it is with acute coronary syndrome. Patient will stay overnight and be seen by [facility] in the morning for possible medication adjustment and referral for outpatient therapy. Patient is not involuntarily committed, she is not petitioned, she is welcome to leave at any time. (DARIUS TY) - Vital Signs Vital signs: Temp Pulse Resp BP Pulse Ox 98.2 F 81 22 H 173/83 H 98 10/06/18 05:00 10/06/18 05:00 10/06/18 05:00 10/06/18 05:00 10/06/18 05:00 - Laboratory Laboratory results interpreted by me: 10/05/18 10/05/18 10/05/18 17:45 17:58 21:14 Potassium 3.5 L Total Bilirubin 1.4 H Ur Leukocyte Esterase TRACE H Acetaminophen < 10 L < 10 L - EKG Interpretation by Me Additional EKG results interpreted by me: 10/05/18 19:28 EKG shows sinus rhythm at a rate of 68, left axis deviation, normal intervals, no ST segment elevations or depressions, there are T wave inversions noted in lead III, biphasic T waves in V3 and flattening in V4 per my interpretation. (DARIUS TY) Discharge <MAHI MCCAIN - Last Filed: 10/05/18 19:20> <DARIUS TY - Last Filed: 10/05/18 19:26> <KIRK DYKES - Last Filed: 10/06/18 16:12> <FRED NOBLES - Last Filed: 10/06/18 16:26> - Discharge Clinical Impression: Anxiety Depression Qualifiers: Depression Type: unspecified Qualified Code(s): F32.9 - Major depressive disorder, single episode, unspecified Condition: Stable Disposition: HOME, SELF-CARE Instructions: Anxiety ([facility]) Additional Instructions: You have been evaluated and assessed at [facility] Emergency Department by both the medical and behavioral health teams after presenting for anxiety and are now deemed appropriate for discharge. While in the ED, you received an initial medical screening, lab work, EKG, medications, direct staff observation, clinical evaluation, physician assessment, and outpatient resources. You were cleared from both services and You are encouraged to develop coping skills through counseling and are encouraged to follow up with a mental health care provider for medication and therapy. Resources were provided to you for local mental health providers and mobile crisis services. Please maintain compliance with your prescribed medication. Anxiety The physician feels that some of your health problems are being caused by anxiety. Anxiety affects your health in many ways. Anxiety alone can cause palpitations, sweats, chest pains, abdominal pains, shortness of breath, and headaches. It contributes to ulcer disease, high blood pressure, irritable bowel syndrome, and has been shown to cause flare-ups of many other diseases. Anxiety is not a simple disorder to treat. If the anxiety is due to recent life stresses, you may simply need time to "work through" the changes. If the anxiety is due to an underlying unhappiness with yourself or due to psychiatric disturbance, professional help will be needed. Your physician can refer you for further help if needed. Anti-anxiety medication is occasionally given if the stress is acute or if you are having trouble sleeping. Chronic or frequent use of these medications is not a good idea because the body becomes reliant on it, preventing you from dealing with life's normal stresses. Depression Your evaluation reveals that you have mental depression. While symptoms may be vague, they often include disturbance of sleep, fatigue, loss of appetite, and general loss of interest in life. While depression may be a side effect of drugs, or a reaction to a major change in your life, many cases have no known cause. If depression is acute, and related to a major loss in your life, you can expect it to clear completely with time. If you have been depressed a long time, are prone to repeated bouts of depression or low mood, or have been thinking of suicide, get help. Depression can be treated with anti-depressant medication and counselling. Long-term depression will often take a few weeks to clear, even with appropriate medication. Follow-up care is important. Contact your physician, the hospital emergency center, crisis line, or your counsellor if you are losing control or having self-destructive thoughts. Prescriptions: Buspirone HCl [Buspar 5 mg Tablet] 1 tab PO BID #30 tab Citalopram Hydrobromide [Celexa 20 mg Tablet] 20 mg PO DAILY #15 tablet Referrals: [facility] [Provider Group] - Follow up as needed Scribe Documentation - Scribe Written by Abraham:: Abraham Burnham, 10/05/2018 1905 acting as scribe for :: Vishal <MAHI MCCAIN - Last Filed: 10/05/18 19:20>
[2018-10-05 18:01] LABS: APPEARANCE,URINE CLOUDY; BILIRUBIN,URINE NEGATIVE (NEGATIVE); COLOR,URINE YELLOW; GLUCOSE, URINE NEGATIVE (NEGATIVE); KETONES,URINE NEGATIVE (NEGATIVE); LEUKOCYTE ESTERASE,URINE TRACE (NEGATIVE); NITRITE,URINE NEGATIVE (NEGATIVE); PROTEIN,URINE NEGATIVE (NEGATIVE); URINE SPECIFIC GRAVITY 1.005; UROBILINOGEN,URINE NEGATIVE mg/dL (<2.0)
--- NOTE | 2018-10-05 18:05 | RADIOLOGY REPORT (SQ) ---
EXAM DESCRIPTION: CHEST SINGLE VIEW COMPLETED DATE/TIME: 10/05/2018 5:56 pm REASON FOR STUDY: SOB COMPARISON: 06/24/2016 and earlier EXAM PARAMETERS: NUMBER OF VIEWS: One view. TECHNIQUE: Single frontal radiographic view of the chest acquired. RADIATION DOSE: NA LIMITATIONS: None. FINDINGS: LUNGS AND PLEURA: No opacities, masses or pneumothorax. No pleural effusion. MEDIASTINUM AND HILAR STRUCTURES: No masses. Contour normal. HEART AND VASCULAR STRUCTURES: Heart normal in size. Normal vasculature. BONES: No acute findings. HARDWARE: None in the chest. OTHER: No other significant finding. IMPRESSION: NO ACUTE RADIOGRAPHIC FINDING IN THE CHEST. TECHNICAL DOCUMENTATION: JOB ID: [id number] [employer]- All Rights Reserved Reading location - IP/workstation name: [email or web address]
[2018-10-05 18:10] LABS: ABSOLUTE BASOPHILS # (AUTO) 0.1 10^3/uL (0.0-0.2); ABSOLUTE LYMPHOCYTES (AUTO) 1.8 10^3/uL (0.5-4.7); ABSOLUTE MONOCYTES (AUTO) 0.5 10^3/uL (0.1-1.4); ABSOLUTE NEUT (AUTO) 6.3 10^3/uL (1.7-8.2); BASOPHILS % (AUTO) 0.7 % (0-2); EOSINOPHILS % (AUTO) 0.4 % (0-6); HEMATOCRIT 42.9 % (36.0-47.0); HEMOGLOBIN 14.8 g/dL (12.0-15.5); MEAN CORPUSCULAR HGB CONC 34.6 g/dL (32.0-36.0); MEAN CORPUSCULAR VOLUME 93 fl (80-97); MONOCYTES % (AUTO) 5.5 % (3-13); PLATELET COUNT 220 10^3/uL (150-450); RED BLOOD COUNT 4.64 10^6/uL (3.72-5.28); SEGMENTED NEUTROPHILS % (AUTO) 72.4 % (42-78); TOTAL CELLS COUNTED % (AUTO) 100 %; WHITE BLOOD COUNT 8.7 10^3/uL (4.0-10.5)
[2018-10-05 18:11] LABS: URINE AMPHETAMINES SCREEN NEGATIVE; URINE BARBITURATES SCREEN NEGATIVE; URINE BENZODIAZEPINES SCREEN NEGATIVE; URINE COCAINE SCREEN NEGATIVE; URINE MARIJUANA (THC) SCREEN NEGATIVE; URINE METHADONE SCREEN NEGATIVE; URINE PHENCYCLIDINE SCREEN NEGATIVE
[2018-10-05 18:22] LABS: ALANINE AMINOTRANSFERASE 24 U/L (9-52); ALBUMIN 4.7 g/dL (3.5-5.0); ALKALINE PHOSPHATASE 85 U/L (38-126); ANION GAP 10 (5-19); ASPARTATE AMINO TRANSFERASE 16 U/L (14-36); BILIRUBIN,DIRECT 0.1 mg/dL (0.0-0.4); BILIRUBIN,TOTAL 1.4 mg/dL (0.2-1.3); BLOOD UREA NITROGEN 9 mg/dL (7-20); CALCIUM 9.9 mg/dL (8.4-10.2); CARBON DIOXIDE 25 mmol/L (22-30); CHLORIDE 105 mmol/L (98-107); CREATINE KINASE 33 U/L (30-135); GLUCOSE 86 mg/dL (75-110); POTASSIUM 3.5 mmol/L (3.6-5.0); SALICYLATE 4.1 mg/dL (2.0-20.0); SODIUM 140.3 mmol/L (137-145); TOTAL PROTEIN 7.4 g/dL (6.3-8.2)
[2018-10-05 18:30] LABS: ACETAMINOPHEN < 10 ug/mL (10-30); ALCOHOL < 10 mg/dL (NONE DETECTED)
[2018-10-05 18:32] LABS: CREATINE KINASE MB < 0.22 ng/mL (<4.55); TROPONIN I < 0.012 ng/mL
[2018-10-05] MEDS ORDERED: HYDROXYZINE PAMOATE 50 MG CAPSULE PO ONE (21:00)
[2018-10-05 21:44] LABS: SALICYLATE 2.9 mg/dL (2.0-20.0)
[2018-10-05 21:52] LABS: ACETAMINOPHEN < 10 ug/mL (10-30)
--- NOTE | 2018-10-05 23:48 | EKG REPORT ---
SEVERITY:- BORDERLINE ECG - SINUS RHYTHM BORDERLINE T ABNORMALITIES, ANTERIOR LEADS : Confirmed by: Bay Nazario 05-Oct-2018 23:47:45
[2018-10-06 06:58] VITALS: BP 173/83
[2018-10-06] MEDS ORDERED: POTASSIUM CHLORIDE 10 MEQ CAPSULE.ER PO ONE (09:41)
--- NOTE | 2018-10-06 09:42 | ER Document Report ---
Doctor's Note Notes: 10/06/18 09:39 Rounds: Chart reviewed and patient interviewed. Patient being evaluated for depression and anxiety. When she was admitted, she was tearful and very depressed. Says she does not feel any different today but she did not crying. Labs show a slightly low potassium at 3.5. Patient had aspirin in her system b ut she took some Excedrin yesterday. Vital signs have slightly elevated blood pressur. Patient says she does have high blood pressure but not currently on any medicines for it. Patient appears to be medically stable for transfer or discharge. Constance Rizvi MD
[2018-10-06] MEDS ORDERED: CITALOPRAM HYDROBROMIDE 20 MG TABLET PO SCH (10:00)
[2018-10-06] MEDS ORDERED: BUSPIRONE HCL 10 MG TABLET PO SCH ×2 (10:00→22:00)
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
== END 2018-10-06 16:40 | disposition home or self-care (01) ==
LOC: ER 16:45
DX: F41.9 Anxiety disorder, unspecified (principal); F32.9 Major depressive disorder, single episode, unspecified; R51 Headache; I10 Essential (primary) hypertension; R07.9 Chest pain, unspecified; R11.0 Nausea; R42 Dizziness and giddiness; F17.210 Nicotine dependence, cigarettes, uncomplicated; J44.9 Chronic obstructive pulmonary disease, unspecified; Z63.5 Disruption of family by separation and divorce
CPT/HCPCS: 36415; 71045; 80053; 80307; 81001; 82550; 82553; 84484; 85025; 93005; 93010; 99285

== ENCOUNTER → 2018-10-23 | Outpatient (CLI) | payer SELFPAY ==
[2018-10-23 11:06] LABS: ABSOLUTE BASOPHILS # (AUTO) 0.1 10^3/uL (0.0-0.2); ABSOLUTE EOSINOPHILS # (AUTO) 0.1 10^3/uL (0.0-0.6); ABSOLUTE LYMPHOCYTES (AUTO) 1.9 10^3/uL (0.5-4.7); ABSOLUTE MONOCYTES (AUTO) 0.3 10^3/uL (0.1-1.4); ABSOLUTE NEUT (AUTO) 4.2 10^3/uL (1.7-8.2); BASOPHILS % (AUTO) 0.9 % (0-2); EOSINOPHILS % (AUTO) 1.7 % (0-6); HEMATOCRIT 39.8 % (36.0-47.0); HEMOGLOBIN 14.1 g/dL (12.0-15.5); LYMPHOCYTES % (AUTO) 28.9 % (13-45); MEAN CORPUSCULAR HEMOGLOBIN 32.8 pg (27.0-33.4); MEAN CORPUSCULAR HGB CONC 35.4 g/dL (32.0-36.0); MEAN CORPUSCULAR VOLUME 93 fl (80-97); MONOCYTES % (AUTO) 5.1 % (3-13); PLATELET COUNT 218 10^3/uL (150-450); RED BLOOD COUNT 4.29 10^6/uL (3.72-5.28); RED CELL DISTRIBUTION WIDTH 12.8 % (11.5-14.0); SEGMENTED NEUTROPHILS % (AUTO) 63.4 % (42-78); TOTAL CELLS COUNTED % (AUTO) 100 %; WHITE BLOOD COUNT 6.6 10^3/uL (4.0-10.5)
[2018-10-23 11:19] LABS: ALANINE AMINOTRANSFERASE 14 U/L (9-52); ALBUMIN 4.3 g/dL (3.5-5.0); ALKALINE PHOSPHATASE 74 U/L (38-126); ANION GAP 9 (5-19); ASPARTATE AMINO TRANSFERASE 14 U/L (14-36); BILIRUBIN,DIRECT 0.3 mg/dL (0.0-0.4); BILIRUBIN,TOTAL 1.2 mg/dL (0.2-1.3); BLOOD UREA NITROGEN 10 mg/dL (7-20); CALCIUM 9.3 mg/dL (8.4-10.2); CARBON DIOXIDE 27 mmol/L (22-30); CHLORIDE 106 mmol/L (98-107); CHOLESTEROL 186.52 mg/dL (0-200); GLUCOSE 99 mg/dL (75-110); SODIUM 141.7 mmol/L (137-145); TOTAL PROTEIN 6.9 g/dL (6.3-8.2); TRIGLYCERIDES 104 mg/dL (<150)
[2018-10-23 11:30] LABS: DIRECT LDL 113 mg/dL (<100)
== END ==
LOC: LAB 10:28
DX: I10 Essential (primary) hypertension (principal)
CPT/HCPCS: 36415; 80053; 80061; 83036; 84443; 85025

== ENCOUNTER 2019-05-08 16:42 | Emergency (ER) | payer SELFPAY ==
[2019-05-08 17:34] VITALS: BP 173/87
--- NOTE | 2019-05-08 20:06 | ER Document Report ---
HPI - HPI Time Seen by Provider: 05/08/19 19:17 Pain Level: 2 Notes: Patient is a 59-year-old female presents emergency department chief complaint of possible abscess to her left shoulder. Patient reports this is been there for at least 6 months. She reports her daughter has squeezed it several times and has gotten thick white drainage from it. She denies any pain at the site, denies any fever. Denies any history of MRSA. - REPRODUCTIVE Reproductive: DENIES: : Past Medical History - General Information source: Patient - Social History Smoking Status: Never Smoker Frequency of alcohol use: None Drug Abuse: None Family History: Reviewed & Not Pertinent - Past Medical History Cardiac Medical History: Reports: Hx Hypertension - not taking meds Pulmonary Medical History: Reports: Hx Bronchitis, Hx COPD Renal/ Medical History: Denies: Hx Peritoneal Dialysis Musculoskeletal Medical History: Reports Hx Arthritis Psychiatric Medical History: Reports: Hx Depression Past Surgical History: Reports: Hx Gynecologic Surgery - part of cervix, Hx Hysterectomy - Immunizations Hx Diphtheria, Pertussis, Tetanus Vaccination: Yes Vertical Provider Document - CONSTITUTIONAL Notes: PHYSICAL EXAMINATION: GENERAL: Well-appearing, well-nourished and in no acute distress. HEAD: Atraumatic, normocephalic. EYES: Pupils equal round extraocular movements intact, conjunctiva are normal. ENT: Nares patent NECK: Normal range of motion LUNGS: No respiratory distress Musculoskeletal: Normal range of motion NEUROLOGICAL: Normal speech, normal gait. PSYCH: Normal mood, normal affect. SKIN: 2 areas of induration on left shoulder consistent with sebaceous cyst. No surrounding erythema, or fluctuance. - INFECTION CONTROL TRAVEL OUTSIDE OF THE [place] IN LAST 30 DAYS: No Course - Re-evaluation Re-evalutation: Per patient's request I did perform an I&D, a large amount of thick white substance was obtained from both sites on the left shoulder. Patient tolerated procedure well. Patient will be discharged home in stable condition with instructions to continue watching the area, return for any signs and symptoms of infection. The patient's emergency department workup and current diagnosis were explained to the patient and or family. Follow-up instructions were provided. Medications if prescribed were discussed. Instructions for when to return to the emergency department including specific worrisome symptoms were discussed with the patient and/or family. - Vital Signs Vital signs: Temp Pulse Resp BP Pulse Ox 98.2 F 73 173/87 H 97 05/08/19 17:29 05/08/19 17:29 05/08/19 17:29 05/08/19 17:29 Procedures - Incision and Drainage Left shoulder Type: Simple Anesthetic type: 1% Lidocaine Blade size: 11 I&D procedure: Betadine prep applied Incision Method: Incision made by scalpel Discharge - Discharge Clinical Impression: Sebaceous cyst Condition: Stable Disposition: HOME, SELF-CARE Additional Instructions: Please continue to apply warm compresses to the area. You do not need to be on any antibiotics as I do not believe there is any underlying infection. Please follow-up with the [facility] or the [facility]. Return to the emergency department for any new or worsening symptoms. Referrals: [facility] [Provider Group] - Follow up as needed
[2019-05-08] MEDS ORDERED: OXYCODONE-ACETAMINOPHEN 5-325 MG TABLET PO ONE (20:07)
== END 2019-05-08 20:14 | disposition home or self-care (01) ==
LOC: ER 16:42
PROC: 0H9CXZZ Drainage of Left Upper Arm Skin, External Approach (ICD-10-PCS; principal; 2019-05-08)
DX: L72.3 Sebaceous cyst (principal); J44.9 Chronic obstructive pulmonary disease, unspecified
CPT/HCPCS: 99282

== ENCOUNTER 2019-05-09 13:49 | Emergency (ER) | payer SELFPAY ==
[2019-05-09] MEDS ORDERED: KETOROLAC TROMETHAMINE INJ/PF 30 MG/1 ML SDV IV ONE (14:30)
[2019-05-09] MEDS ORDERED: PROCHLORPERAZINE EDISYLATE INJ 10 MG/2 ML VIAL IV ONE (14:30)
[2019-05-09] MEDS ORDERED: DIPHENHYDRAMINE HCL 50 MG/ML VIAL IV ONE (14:30)
[2019-05-09] MEDS ORDERED: NORMAL SALINE 500 ML IV ONE (14:31)
--- NOTE | 2019-05-09 14:32 | ER Document Report ---
HPI - HPI Patient complains to provider of: Headache nausea and vomiting after taking Percocet yesterday Time Seen by Provider: 05/09/19 14:20 Onset: Yesterday Onset/Duration: Persistent Quality of pain: Achy Severity: Moderate Pain Level: 4 Associated Symptoms: Headache, Nausea, Vomiting Exacerbated by: Denies Relieved by: Denies Similar symptoms previously: Yes Recently seen / treated by doctor: Yes - ROS ROS below otherwise negative: Yes - CONSTITUTIONAL Constitutional: DENIES: Fever, Chills - EENT EENT: DENIES: Sore Throat, Ear Pain, Nasal Drainage-Clear, Nasal Drainage- Purulent, Congestion, Eye problems - NEURO Neurology: REPORTS: Headache, Dizzinesss / Vertigo. DENIES: Weakness, Vision blurred - CARDIOVASCULAR Cardiovascular: DENIES: Chest pain - RESPIRATORY Respiratory: DENIES: Trouble Breathing, Coughing - GASTROINTESTINAL Gastrointestinal: REPORTS: Nausea, Patient vomiting. DENIES: Abdominal Pain, Diarrhea, Constipation, Black / Bloody Stools - URINARY Urinary: DENIES: Dysuria, Urgency, Frequency - REPRODUCTIVE Reproductive: DENIES: :, Postmenopausal, Abnormal bleeding / discharge - MUSCULOSKELETAL Musculoskeletal: DENIES: Extremity pain, Back Pain, Neck Pain, Swelling - DERM Skin Color: Normal, [place] Skin Problems: None Past Medical History - Social History Smoking Status: Current Every Day Smoker Cigarette use (# per day): Yes - 1/2 ppd Smoking Education Provided: Yes - 4 min Family History: Reviewed & Not Pertinent Patient has suicidal ideation: No Patient has homicidal ideation: No - Past Medical History Cardiac Medical History: Reports: Hx Hypertension - not taking meds Pulmonary Medical History: Reports: Hx Bronchitis, Hx COPD EENT Medical History: Reports: None Neurological Medical History: Reports: None Endocrine Medical History: Reports: None Renal/ Medical History: Reports: None Malignancy Medical History: Reports: None GI Medical History: Reports: None Musculoskeletal Medical History: Reports Hx Arthritis Skin Medical History: Reports Hx Cellulitis Psychiatric Medical History: Reports: Hx Depression Traumatic Medical History: Reports: None Infectious Medical History: Reports: None Past Surgical History: Reports: Hx Gynecologic Surgery - part of cervix, Hx Hysterectomy - Immunizations Hx Diphtheria, Pertussis, Tetanus Vaccination: Yes Vertical Provider Document - CONSTITUTIONAL Agree With Documented VS: Yes Exam Limitations: No Limitations, Clinical Condition - INFECTION CONTROL TRAVEL OUTSIDE OF THE [place] IN LAST 30 DAYS: No - HEENT HEENT: Atraumatic, Normal ENT Exam, Normocephalic, PERRLA - NECK Neck: Normal Inspection, Supple, Thyroid Normal - RESPIRATORY Respiratory: Breath Sounds Normal, No Respiratory Distress, Chest Non-Tender - CARDIOVASCULAR Cardiovascular: Regular Rate, Regular Rhythm, No Murmur - GI/ABDOMEN Gastrointestinal: Abdomen Soft, Abdomen Non-Tender, No Organomegaly, Normal Bowel Sounds - REPRODUCTIVE Female Genitalia: Normal Inspection - BACK Back: Normal Inspection - NEURO Level of Consciousness: Awake, Alert, Appropriate Deep Tendon Reflexes: 2+ - DERM Integumentary: Warm, Dry, No Rash Course - Re-evaluation Re-evalutation: 05/09/19 20:39 After performing a Medical Screening Examination, I estimate there is LOW risk for ACUTE GLAUCOMA, TEMPORAL ARTERITIS, MENINGITIS, INCRANIAL HEMORRHAGE, or ISCHEMIC STROKE thus I consider the discharge disposition reasonable. I have reevaluated this patient multiple times and no significant life threatening changes are noted. The patient and I have discussed the diagnosis and risks, and we agree with discharging home with close follow-up with the understanding that symptoms and presentations can change. We also discussed returning to the Emergency Department immediately if new or worsening symptoms occur. We have discussed the symptoms which are most concerning (e.g., changing or worsening symptoms, new numbness or weakness, vomiting, fever) that necessitate immediate return. - Vital Signs Vital signs: Temp Pulse Resp BP Pulse Ox 98.1 F 75 16 168/84 H 98 05/09/19 13:55 05/09/19 13:55 05/09/19 13:55 05/09/19 13:55 05/09/19 13:55 Discharge - Discharge Clinical Impression: Headache Qualifiers: Headache type: unspecified Headache chronicity pattern: acute headache Int ractability: not intractable Qualified Code(s): R51 - Headache Nausea & vomiting Qualifiers: Vomiting type: unspecified Vomiting Intractability: non-intractable Qualified Code(s): R11.2 - Nausea with vomiting, unspecified Condition: Stable Disposition: HOME, SELF-CARE Instructions: Family Physicians / Practices Additional Instructions: HEADACHE: The physician does not feel that the headache you are experiencing has a serious underlying cause. Most headaches are due to emotional stress, with resultant muscle tension (tension headache). Occasionally, headaches are secondary to changes in the blood vessels of the scalp (vascular headache and migraine headache). Sometimes, a headache is the first symptom of another developing illness, such as a viral infection. You have no evidence of stroke, bleeding, meningitis, or other serious cause of your headache. The treatment of headaches varies with the severity and cause of the pain. Not all headaches need pain shots. In fact, there is evidence that using narcotics for headaches may make them worse in the long run. The physician will determine the therapy that's in your best interest. If you develop a fever, if the headache is different from any you've previously experienced, or if the headache progressively worsens, then call your physician at once or go to the emergency room. USE OF DIPHENHYDRAMINE: Diphenhydramine (Benadryl) is an antihistamine and has been recommended to help treat your headache and to prevent side effects of other medications used to treat headaches. The medication can be repeated four times daily. Age Elixir (12.5 mg/tsp) 25 mg pill adult 1-2 tabs Antihistamines may cause drowsiness, especially with the first dose. Do not operate machinery or drive while under the effects of the medication. Do not combine the medication with alcohol, or with any other medication without talking to your doctor. ANTINAUSEA MEDICATION: You have been given a medication to suppress nausea and vomiting. This type of medication can be given as a shot, pill, or suppository. It will usually last for many hours. Pills and shots usually last six to eight hours, suppositories last about 12 hours. For the typical illness, only one or two doses of the medication may be necessary. Mild lightheadedness may occur. This type of medicine can cause drowsiness. Do not drive or operate dangerous machinery while under its influence. Do not mix with alcohol. See your doctor at once if you have muscle spasms or tightness, or uncontrollable motions (particularly of the neck, mouth, or jaw). Persistent vomiting or severe lightheadedness should also be evaluated by the physician. INTRAVENOUS COMPAZINE FOR HEADACHE: You have received therapy for headaches, using intravenous Compazine. This treatment is dramatically successful in relieving the headache in about 50 percent of cases. When it works, it provides a rapid method of eliminating the headache without resorting to narcotics (and the problems associated with them). Most patients still feel fully alert after the Compazine, but others may be slightly drowsy. It's best not to drive or work with machinery for six to eight hours. Do not take alcohol or other medication unless you discuss it with the doctor. If you develop tightness and spasms in your muscles, especially the neck and tongue, you should return. This is a side effect which can be treated. TORADOL INJECTION: You have been given an injection of ketorolac tromethamine (Toradol). This is an excellent, safe drug for pain control. It also has potent antiinflammatory action. You should have significant pain relief within about one hour. Toradol is not addicting and is non-sedating. It does not interfere with driving or work. Call or return if you develop itching, hives, shortness of breath, or rash. Intravenous (IV) Fluids As part of your care today, you received intravenous (IV) fluids. IV fluids are administered to patients who are dehydrated or to those who have certain chemical (electrolyte) abnormalities that need correcting. FOLLOW-UP CARE: If you have been referred to a physician for follow-up care, call the physicians office for an appointment as you were instructed or within the next two days. If you experience worsening or a significant change in your symptoms, notify the physician immediately or return to the Emergency Department at any time for re-evaluation. Prescriptions: Prochlorperazine Maleate [Compazine] 10 mg PO Q6HP PRN #14 tablet PRN Reason: Forms: Smoking Cessation Education
[2019-05-09 15:30] VITALS: BP 154/67
== END 2019-05-09 15:30 | disposition home or self-care (01) ==
LOC: ER 13:49
DX: R51 Headache (principal); R11.2 Nausea with vomiting, unspecified; R42 Dizziness and giddiness; F17.210 Nicotine dependence, cigarettes, uncomplicated; Z90.710 Acquired absence of both cervix and uterus
CPT/HCPCS: 99406; 99283; 96361; 96374; 96375; J1200; J1885; J0780; J7040

== ENCOUNTER 2019-07-11 14:35 | Emergency (ER) | payer SELFPAY ==
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
[2019-07-11 16:08] LABS: ABSOLUTE EOSINOPHILS # (AUTO) 0.1 10^3/uL (0.0-0.6); ABSOLUTE LYMPHOCYTES (AUTO) 1.9 10^3/uL (0.5-4.7); ABSOLUTE MONOCYTES (AUTO) 0.4 10^3/uL (0.1-1.4); ABSOLUTE NEUT (AUTO) 5.9 10^3/uL (1.7-8.2); BASOPHILS % (AUTO) 0.6 % (0-2); EOSINOPHILS % (AUTO) 0.6 % (0-6); HEMATOCRIT 41.1 % (36.0-47.0); HEMOGLOBIN 13.9 g/dL (12.0-15.5); MEAN CORPUSCULAR HEMOGLOBIN 31.4 pg (27.0-33.4); MEAN CORPUSCULAR HGB CONC 33.9 g/dL (32.0-36.0); MEAN CORPUSCULAR VOLUME 93 fl (80-97); MONOCYTES % (AUTO) 4.4 % (3-13); PLATELET COUNT 204 10^3/uL (150-450); RED BLOOD COUNT 4.43 10^6/uL (3.72-5.28); SEGMENTED NEUTROPHILS % (AUTO) 71.4 % (42-78); TOTAL CELLS COUNTED % (AUTO) 100 %; WHITE BLOOD COUNT 8.3 10^3/uL (4.0-10.5)
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
[2019-07-11 16:27] LABS: ALBUMIN 4.4 g/dL (3.5-5.0); ALKALINE PHOSPHATASE 77 U/L (38-126); ANION GAP 10 (5-19); ASPARTATE AMINO TRANSFERASE 18 U/L (14-36); BILIRUBIN,TOTAL 1.5 mg/dL (0.2-1.3); BLOOD UREA NITROGEN 12 mg/dL (7-20); CALCIUM 9.6 mg/dL (8.4-10.2); CARBON DIOXIDE 28 mmol/L (22-30); CHLORIDE 103 mmol/L (98-107); GLUCOSE 107 mg/dL (75-110); POTASSIUM 3.7 mmol/L (3.6-5.0); TOTAL PROTEIN 7.6 g/dL (6.3-8.2)
[2019-07-11 16:29] LABS: ACETAMINOPHEN < 10 ug/mL (10-30); ALCOHOL < 10 mg/dL (NONE DETECTED); SALICYLATE < 1.0 mg/dL (2.0-20.0)
[2019-07-11 16:40] LABS: APPEARANCE,URINE CLOUDY; BILIRUBIN,URINE NEGATIVE (NEGATIVE); COLOR,URINE AMBER; GLUCOSE, URINE NEGATIVE (NEGATIVE); KETONES,URINE NEGATIVE (NEGATIVE); LEUKOCYTE ESTERASE,URINE NEGATIVE (NEGATIVE); NITRITE,URINE NEGATIVE (NEGATIVE); PROTEIN,URINE 30 mg/dL (NEGATIVE); URINE SPECIFIC GRAVITY 1.014
[2019-07-11 16:55] LABS: URINE AMPHETAMINES SCREEN NEGATIVE; URINE BARBITURATES SCREEN NEGATIVE; URINE BENZODIAZEPINES SCREEN NEGATIVE; URINE COCAINE SCREEN NEGATIVE; URINE MARIJUANA (THC) SCREEN NEGATIVE; URINE METHADONE SCREEN NEGATIVE; URINE PHENCYCLIDINE SCREEN NEGATIVE
[2019-07-11] MEDS ORDERED: DIVALPROEX SODIUM 250 MG TAB.SR.24H PO ONE (19:06)
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
[2019-07-11 19:58] VITALS: BP 166/76
--- NOTE | 2019-07-11 21:27 | EKG REPORT ---
SEVERITY:- NORMAL ECG - SINUS RHYTHM : Confirmed by: Minda Osorio MD 11-Jul-2019 21:26:22
== END 2019-07-11 19:33 | disposition home or self-care (01) ==
LOC: ER 14:35
DX: R45.851 Suicidal ideations (principal); F17.200 Nicotine dependence, unspecified, uncomplicated; I10 Essential (primary) hypertension; J44.9 Chronic obstructive pulmonary disease, unspecified
CPT/HCPCS: 93005; 36415; 80307 ×4; 85025; 80053; 81001; 93010; J3490; 99285

== ENCOUNTER 2019-09-20 11:22 | Emergency (ER) | payer SELFPAY ==
[2019-09-20 11:34] VITALS: BP 157/79
--- NOTE | 2019-09-20 12:20 | ER Document Report ---
ED Medical Screen (RME) - General Chief Complaint: Flu Symptoms Stated Complaint: POSSIBLE FLU Time Seen by Provider: 09/20/19 12:03 Mode of Arrival: Ambulatory Information source: Patient Notes: 59-year-old female patient presents emergency department with cough, congestion, fever and body aches. She states she has been staying at the longterm and nobody will help her. She has not taken any medications for her symptoms. Her symptoms have been ongoing for 3 days. Lung sounds clear and equal bilaterally. I have greeted and performed a rapid initial assessment of this patient. A comprehensive ED assessment and evaluation of the patient, analysis of test results and completion of the medical decision making process will be conducted by additional ED providers. I have specifically instructed the patient or family members with the patient to immediately return to any nursing staff should anything change in the patient's condition or with their chief complaint. TRAVEL OUTSIDE OF THE [place] IN LAST 30 DAYS: No - Related Data Allergies/Adverse Reactions: Penicillins Allergy (Verified 07/11/19 15:07) tramadol Allergy (Verified 07/11/19 15:07) Past Medical History - Social History Frequency of alcohol use: None Drug Abuse: None Family history: CVA - Past Medical History Cardiac Medical History: Reports: Hx Hypertension - not taking meds Pulmonary Medical History: Reports: Hx Bronchitis, Hx COPD Renal/ Medical History: Denies: Hx Peritoneal Dialysis Musculoskeltal Medical History: Reports Hx Arthritis Skin Medical History: Reports Hx Cellulitis Psychiatric Medical History: Reports: Hx Depression Past Surgical History: Reports: Hx Gynecologic Surgery - part of cervix, Hx Hysterectomy - Immunizations Hx Diphtheria, Pertussis, Tetanus Vaccination: Yes Physical Exam - Vital signs Vitals: Temp Pulse Resp BP Pulse Ox 98.8 F 82 16 157/79 H 93 09/20/19 11:33 09/20/19 11:33 09/20/19 11:33 09/20/19 11:33 09/20/19 11:33 Course - Vital Signs Vital signs: Temp Pulse Resp BP Pulse Ox 98.8 F 82 16 157/79 H 93 09/20/19 11:33 09/20/19 11:33 09/20/19 11:33 09/20/19 11:33 09/20/19 11:33
[2019-09-20 12:59] LABS: ABSOLUTE LYMPHOCYTES (AUTO) 1.3 10^3/uL (0.5-4.7); ABSOLUTE MONOCYTES (AUTO) 0.6 10^3/uL (0.1-1.4); ABSOLUTE NEUT (AUTO) 7.7 10^3/uL (1.7-8.2); BASOPHILS % (AUTO) 0.2 % (0-2); HEMATOCRIT 41.7 % (36.0-47.0); HEMOGLOBIN 14.6 g/dL (12.0-15.5); LYMPHOCYTES % (AUTO) 13.6 % (13-45); MEAN CORPUSCULAR HEMOGLOBIN 32.2 pg (27.0-33.4); MEAN CORPUSCULAR VOLUME 92 fl (80-97); MONOCYTES % (AUTO) 6.4 % (3-13); PLATELET COUNT 149 10^3/uL (150-450); RED BLOOD COUNT 4.53 10^6/uL (3.72-5.28); RED CELL DISTRIBUTION WIDTH 12.9 % (11.5-14.0); SEGMENTED NEUTROPHILS % (AUTO) 79.8 % (42-78); TOTAL CELLS COUNTED % (AUTO) 100 %; WHITE BLOOD COUNT 9.6 10^3/uL (4.0-10.5)
[2019-09-20 13:13] LABS: ALBUMIN 4.4 g/dL (3.5-5.0); ALKALINE PHOSPHATASE 71 U/L (38-126); ANION GAP 11 (5-19); ASPARTATE AMINO TRANSFERASE 28 U/L (14-36); BILIRUBIN,DIRECT 0.5 mg/dL (0.0-0.4); BILIRUBIN,TOTAL 1.7 mg/dL (0.2-1.3); BLOOD UREA NITROGEN 15 mg/dL (7-20); CALCIUM 9.2 mg/dL (8.4-10.2); CARBON DIOXIDE 29 mmol/L (22-30); CHLORIDE 98 mmol/L (98-107); GLUCOSE 134 mg/dL (75-110); POTASSIUM 3.7 mmol/L (3.6-5.0); TOTAL PROTEIN 7.8 g/dL (6.3-8.2)
[2019-09-20 13:31] LABS: A TYPE INFLUENZA AG NEGATIVE (NEGATIVE); B INFLUENZA AG NEGATIVE (NEGATIVE)
--- NOTE | 2019-09-20 13:36 | RADIOLOGY REPORT (SQ) ---
EXAM DESCRIPTION: CHEST 2 VIEWS COMPLETED DATE/TIME: 09/20/2019 12:38 pm REASON FOR STUDY: cough/fever COMPARISON: Chest films 09/23/2015, 09/24/2015, 10/05/2018 EXAM PARAMETERS: NUMBER OF VIEWS: two views TECHNIQUE: Digital Frontal and Lateral radiographic views of the chest acquired. RADIATION DOSE: NA LIMITATIONS: none FINDINGS: LUNGS AND PLEURA: No opacities, masses or pneumothorax. No pleural effusion. MEDIASTINUM AND HILAR STRUCTURES: No masses or contour abnormalities. HEART AND VASCULAR STRUCTURES: Heart normal size. No evidence for failure. BONES: No acute findings. HARDWARE: None in the chest. OTHER: No other significant finding. IMPRESSION: NO ACUTE RADIOGRAPHIC FINDING IN THE CHEST. TECHNICAL DOCUMENTATION: JOB ID: [id number] [employer]- All Rights Reserved Reading location - IP/workstation name: [email or web address]
--- NOTE | 2019-09-20 15:40 | ER Document Report ---
ED Flu Like - General Chief Complaint: Flu Symptoms Stated Complaint: POSSIBLE FLU Time Seen by Provider: 09/20/19 12:03 Primary Care Provider: [facility] [Provider Group] - Follow up as needed [facility] [Provider Group] - Follow up as needed Mode of Arrival: Ambulatory Notes: Patient is a 59-year-old female with a history of depression, anxiety and hypertension who presents to the emergency department with a chief complaint of cough, congestion and body aches. Patient reports she is currently living at a homeless residential. Patient reports that she has been sick for about 4 days and then no one there will help her. Patient reports she does smoke about a half a pack of cigarettes per day. Patient reports she has had a productive cough with yellow sputum. Patient reports chills without notable fever. Patient reports bilateral ear pain, which is worse on the right. Patient denies vomiting or diarrhea but does state having nausea. Patient reports her last bowel movement was yesterday and normal. Patient denies chest pain or shortness of breath. Azam ningtad reports she has not taken any [id number] medications for her symptoms. TRAVEL OUTSIDE OF THE [place] IN LAST 30 DAYS: No - Related Data Allergies/Adverse Reactions: tramadol Allergy (Verified 07/11/19 15:07) Past Medical History - General Information source: Patient - Social History Smoking Status: Current Every Day Smoker Frequency of alcohol use: None Drug Abuse: None Lives with: Family Family History: Reviewed & Not Pertinent Patient has suicidal ideation: No Patient has homicidal ideation: No - Past Medical History Cardiac Medical History: Reports: Hx Hypertension - not taking meds Pulmonary Medical History: Reports: Hx Bronchitis, Hx COPD EENT Medical History: Reports: None Neurological Medical History: Reports: None Endocrine Medical History: Reports: None Renal/ Medical History: Reports: None. Denies: Hx Peritoneal Dialysis Malignancy Medical History: Reports: None GI Medical History: Reports: None Musculoskeletal Medical History: Reports Hx Arthritis Skin Medical History: Reports Hx Cellulitis Psychiatric Medical History: Reports: Hx Depression Traumatic Medical History: Reports: None Infectious Medical History: Reports: None Past Surgical History: Reports: Hx Gynecologic Surgery - part of cervix, Hx Hysterectomy - Immunizations Hx Diphtheria, Pertussis, Tetanus Vaccination: Yes Review of Systems - Review of Systems Constitutional: See HPI EENT: See HPI Cardiovascular: No symptoms reported Respiratory: See HPI Gastrointestinal: See HPI Genitourinary: No symptoms reported Female Genitourinary: No symptoms reported Musculoskeletal: No symptoms reported Skin: No symptoms reported Hematologic/Lymphatic: No symptoms reported Neurological/Psychological: No symptoms reported Physical Exam - Vital signs Vitals: Temp Pulse Resp BP Pulse Ox 98.8 F 82 16 157/79 H 93 09/20/19 11:33 09/20/19 11:33 09/20/19 11:33 09/20/19 11:33 09/20/19 11:33 Interpretation: Hypertensive - Notes Notes: GENERAL: Well-appearing, well-nourished and in no acute distress. HEAD: Atraumatic, normocephalic. EYES: Pupils equal round and reactive to light, extraocular movements intact, sclera anicteric, conjunctiva are normal. ENT: Left ear; left external ear unremarkable without edema, erythema. There is no mastoid or tragus tenderness. TM easily visualized which is pearly rodriguez without exudate, bulging or erythema. Right ear; right external ear unremarkable without edema or erythema. Patient does not have mastoid or tragus tenderness. Patient's TM on the right is bulging, extremely erythematous with effusion, landmarks are distorted. Nares patent, + rhinorrhea, bilateral erythematous turbinates, oropharynx clear without exudates. Moist mucous membranes. NECK: Normal range of motion, supple without lymphadenopathy or JVD. LUNGS: Breath sounds clear to auscultation bilaterally and equal. No wheezes rales or rhonchi. Patient does have intermittent productive cough during examination. HEART: Regular rate and rhythm without murmurs, rubs or gallops. ABDOMEN: Soft, nontender, normoactive bowel sounds. No guarding, no rebound. No masses appreciated. BACK: No cervical, thoracic, lumbar midline tenderness. No saddle anesthesia, normal distal neurovascular exam. GENITOURINARY: Deferred. EXTREMITIES: Normal range of motion, no pitting or edema. No clubbing or cyanosis. NEUROLOGICAL: Cranial nerves II through XII grossly intact. Normal speech, normal gait. PSYCH: Normal mood, normal affect. SKIN: Warm, Dry, normal turgor, no rashes or lesions noted. Course - Re-evaluation Re-evalutation: 09/20/19 16:08 Upon initial assessment patient is resting comfortably on stretcher. Patient is sleeping and easy to arouse. Examination does reveal a right otitis media with effusion. Patient verbally upset stating that I am not doing anything to help with her symptoms. I did inform her we will give her first dose of antibiotics here in the emergency department and that she does have an ear infection as well as a upper respiratory infection. I did explain to the patient that she does not have influenza. Patient reports she does not understand because she has all the symptoms. I did inform her that she does have a upper respiratory infection which is typically due to a virus. I did educate her that upper respiratory infections and viruses can make people feel similar with body aches, chills, low-grade fever. We will give the patient Tessalon Perles, antibiotics for her ear infection. Patient's reports that she is taking amoxicillin and other penicillins in the past without any side effects. This was initially listed on her allergy. This will be removed and corrected. Patient no acute distress and nontoxic-appearing 09/20/19 16:15 Patient has concerns about filling her amoxicillin due to financial issues. Did provide her with a discount card and per the website it states that her to be around $12 at [facility]. I did make her aware of this. I did inform her that out of the Tessalon Perles and the antibiotics, the antibiotics are the most important because this is used to treat her right ear infection. Patient verbalized understanding. 09/20/19 16:19 Prior to discharge patient's oxygen level 92%. Patient sitting on the side of the bed in no acute distress, breathing is even and unlabored. Patient does have intermittent productive cough. Did offer the patient a breathing treatment but patient reports she cannot stay for this as she does have to get back to the homeless residential and her only ride is her sister. Patient is nontoxic- appearing. - Vital Signs Vital signs: Temp Pulse Resp BP Pulse Ox 98.8 F 82 16 157/79 H 93 09/20/19 11:33 09/20/19 11:33 09/20/19 11:33 09/20/19 11:33 09/20/19 11:33 - Laboratory Result Diagrams: 09/20/19 12:28 09/20/19 12:28 Laboratory results interpreted by me: 09/20/19 09/20/19 12:28 12:28 Plt Count 149 L Seg Neutrophils % 79.8 H Glucose 134 H Total Bilirubin 1.7 H Direct Bilirubin 0.5 H 09/20/19 16:08 Patient's lab work does not show significant leukocytosis or anemia. There is no alteration in electrolytes. Bilirubin slightly elevated. Patient has normal AST and ALT negative influenza. Laboratory 09/20/19 09/20/19 09/20/19 12:28 12:28 12:28 WBC 9.6 RBC 4.53 Hgb 14.6 Hct 41.7 MCV 92 MCH 32.2 MCHC 35.0 RDW 12.9 Plt Count 149 L Lymph % (Auto) 13.6 Anderson % (Auto) 6.4 Eos % (Auto) 0.0 Baso % (Auto) 0.2 Absolute Neuts (auto) 7.7 Absolute Lymphs (auto) 1.3 Absolute Monos (auto) 0.6 Absolute Eos (auto) 0.0 Absolute Basos (auto) 0.0 Seg Neutrophils % 79.8 H Sodium 137.5 Potassium 3.7 Chloride 98 Carbon Dioxide 29 Anion Gap 11 BUN 15 Creatinine 0.63 Est GFR ( Amer) > 60 Est GFR (MDRD) Non-Af > 60 Glucose 134 H Calcium 9.2 Total Bilirubin 1.7 H Direct Bilirubin 0.5 H Neonat Total Bilirubin Not Reportable Neonat Direct Bilirubin Not Reportable Neonat Indirect Bili Not Reportable AST 28 ALT 16 Alkaline Phosphatase 71 Total Protein 7.8 Albumin 4.4 Influenza A (Rapid) NEGATIVE Influenza B (Rapid) NEGATIVE - Diagnostic Test Radiology reviewed: Reports reviewed Radiology results interpreted by me: 09/20/19 16:08 Chest X-Ray 09/20/19 12:18 IMPRESSION: NO ACUTE RADIOGRAPHIC FINDING IN THE CHEST. Discharge - Discharge Clinical Impression: Myalgia, Generalized body aches, Productive cough, Right otitis media with effusion Condition: Stable Disposition: HOME, SELF-CARE Additional Instructions: *Today was seen in the emergency department for cough, ear pain, congestion and body aches. Your symptoms are consistent with an upper respiratory illness this also called the common cold. With this you can have all of the symptoms plus a fever. This is highly contagious. This usually lasts about 10 to 14 days. Antibiotics are not used for this. Please make sure you are drinking plenty of fluids. You can use an hmjo-[id number] Mucinex to help bring up the thick sputum that you are coughing. Use Tylenol and ibuprofen as needed for fever or aches. *You are being prescribed an antibiotic called amoxicillin for your ear infection on the right side. Your ear should start to feel better over the next few days. *For cough and given you a prescription for Tessalon Perles. I am also giving you a albuterol inhaler to go home with. Please use this 2 puffs every 4 hours as needed for wheezing. Please quit smoking as this can make your symptoms significantly worse. Otitis Media You have a middle ear infection (otitis media). This is usually a complication of a cold or sore throat. The middle ear cavity becomes filled with infection. Pressure and stretching of the ear drum cause pain. Antibiotics are required. A 10 day course is usually prescribed. A decongestant may be recommended if you have a "runny nose." You may need anesthetic drops or other pain medication. A follow-up exam may be recommended to make sure the infection has completely cleared. If the ear begins to drain, it means the ear drum has ruptured. This will usually heal spontaneously. However, it means you should keep the ear dry until re-examined by a doctor. Call the physician or return for examination at once if there is severe headache, stiff neck, confusion, increasing fever, or dizziness. You should improve significantly within two days. If you're not better, call the doctor. UPPER RESPIRATORY ILLNESS: You have a viral infection of the respiratory passages -- a "cold." This common infection causes nasal congestion, drainage, and often sore throat and cough. It is highly contagious. The disease usually lasts about 10 to 14 days. There is no "cure" for the viral infection -- it must run its course. If there is a complication, such as bacterial infection in the nose, sinuses, middle ear, or bronchial tubes, antibiotics may be required. The antibiotics won't affect the virus. Drink plenty of fluids. A humidifier may help. An expectorant medication or decongestant may make you more comfortable. Use acetaminophen or ibuprofen for fever or aches. See the doctor if fever persists over two days, if there is any significant worsening of your symptoms, or if you simply fail to improve as expected. COUGH-SUPPRESSANT & EXPECTORANT MEDICATION: You are to use a cough medication as needed for relief of symptoms. This medicine is a combination of an expectorant (to make the mucous thinner and more easily "coughed up") and a cough suppressant (to reduce the frequency of coughing). The cough-suppressant medicine is related to narcotics. You may experience mild nausea and sleepiness. Some patients who are very sensitive to narcotics may have stomach pain from this medicine. Taking the medicine with food reduces these side effects. Do not drive or work with machinery until you know how this medicine affects you. The expectorant should have no side effects. Iodine-containing expectorants (such as organidin) should not be taken by persons with active thyroid disease unless approved by your doctor. Call the doctor if you develop shortness of breath, hives, rash, itching, lightheadedness, or severe nausea and vomiting. INHALED BRONCHODILATORS: You have received a treatment of and/or prescription for an inhaled bronchodilator -- a medication which stimulates the airways in the lung to dilate. This improves the flow of air in asthma, bronchitis, and emphysema. These medicines have some similarity to adrenaline, and can cause similar side effects: shakiness, racing heart, and a sense of nervousness. These side effects decrease with time. Contact your doctor if these side effects are severe. Do not over-use the medicine. Too-frequent use of the inhaler may make it ineffective. Call your doctor if the inhaler is not controlling your symptoms at the prescribed doses. USE OF ACETAMINOPHEN (Tylenol): Acetaminophen may be taken for pain relief or fever control. It's much safer than aspirin, offering a wider range of "safe" dosages. It is safe during . Some brand names are Tylenol, Panadol, Datril, Anacin 3, Tempra, and Liquiprin. Acetaminophen can be repeated every four hours. The following are maximum recommended dosages: >89 pounds or adults 650 mg to 900 mg Acetaminophen can be repeated every four hours. Maximum dose not to exceed 4000 mg a day. SMOKING: If you smoke, you should stop smoking. The tar and chemicals in cigarette smoke are harmful. Smoking has been shown to cause: emphysema chronic bronchitis lung cancer mouth and throat cancer stomach and pancreas cancer premature aging defects In addition, smoking increases ear and lung infections in children of smokers. FOLLOW-UP CARE: If you have been referred to a physician for follow-up care, call the physicians office for an appointment as you were instructed or within the next two days. If you experience worsening or a significant change in your symptoms, notify the physician immediately or return to the Emergency Department at any time for re-evaluation. Prescriptions: Benzonatate [Tessalon Perles 100 mg Capsule] 100 mg PO Q8HP PRN #40 capsule PRN Reason: Amoxicillin 2 tab PO TID 7 Days #42 tab Forms: Smoking Cessation Education Referrals: [facility] [Provider Group] - Follow up as needed [facility] [Provider Group] - Follow up as needed
[2019-09-20] MEDS ORDERED: AMOXICILLIN TRIHYDRATE 500 MG CAPSULE PO ONE (16:00)
[2019-09-20] MEDS ORDERED: BENZONATATE 100 MG CAPSULE PO ONE (16:00)
[2019-09-20] MEDS ORDERED: ALBUTEROL SULFATE HFA (90 MCG/PUFF) 8 GM MDI (1 MDI/ER DISP) IH PRN (16:00)
== END 2019-09-20 16:21 | disposition home or self-care (01) ==
LOC: ER 11:22
DX: H65.91 Unspecified nonsuppurative otitis media, right ear (principal); M79.10 Myalgia, unspecified site; R05 Cough; F17.200 Nicotine dependence, unspecified, uncomplicated; I10 Essential (primary) hypertension; Z88.6 Allergy status to analgesic agent; Z90.710 Acquired absence of both cervix and uterus
CPT/HCPCS: 99283; 36415; 85025; 80053; 87804; 71046; J3490

== ENCOUNTER 2020-07-08 15:51 | Emergency (ER) | payer SELFPAY ==
--- NOTE | 2020-07-08 16:13 | ER Document Report ---
ED Medical Screen (RME) - General Stated Complaint: LEFT LEG PAIN Time Seen by Provider: 07/08/20 16:02 Mode of Arrival: Wheelchair Information source: Patient Notes: Patient presents complaining of right lower extremity pain for the past week. Patient denies any injury. Patient complains of right knee pain that radiates into the right calf. Patient denies any chest pain or shortness of breath. Patient denies any history of gout. I have greeted and performed a rapid initial assessment of this patient. A comprehensive ED assessment and evaluation of the patient, analysis of test results and completion of the medical decision making process will be conducted by additional ED providers. TRAVEL OUTSIDE OF THE [place] IN LAST 30 DAYS: No - Related Data Allergies/Adverse Reactions: tramadol Allergy (Verified 07/11/19 15:07) Past Medical History - Social History Family history: CVA - Past Medical History Cardiac Medical History: Reports: Hx Hypertension - not taking meds Pulmonary Medical History: Reports: Hx Bronchitis, Hx COPD Renal/ Medical History: Denies: Hx Peritoneal Dialysis Musculoskeltal Medical History: Reports Hx Arthritis Skin Medical History: Reports Hx Cellulitis Psychiatric Medical History: Reports: Hx Depression Past Surgical History: Reports: Hx Gynecologic Surgery - part of cervix, Hx Hysterectomy - Immunizations Hx Diphtheria, Pertussis, Tetanus Vaccination: Yes Physical Exam - Vital signs Vitals: Temp Pulse Resp BP Pulse Ox 97.8 F 86 16 159/96 H 100 07/08/20 15:58 07/08/20 15:58 07/08/20 15:58 07/08/20 15:58 07/08/20 15:58 - General General appearance: Alert, Anxious Notes: Patient somewhat tearful in triage, patient with exaggerated pain response with very light palpation of the right knee, no obvious erythema to the knee Course - Vital Signs Vital signs: Temp Pulse Resp BP Pulse Ox 97.8 F 86 16 159/96 H 100 07/08/20 15:58 07/08/20 15:58 07/08/20 15:58 07/08/20 15:58 07/08/20 15:58
--- NOTE | 2020-07-08 16:55 | RADIOLOGY REPORT (SQ) ---
EXAM DESCRIPTION: KNEE RIGHT 4 VIEWS IMAGES COMPLETED DATE/TIME: 07/08/2020 4:29 pm REASON FOR STUDY: R knee, RLE pain COMPARISON: None. NUMBER OF VIEWS: Four views. TECHNIQUE: AP, lateral, and both oblique radiographic images acquired of the right knee. LIMITATIONS: None. FINDINGS: MINERALIZATION: Normal. BONES: No acute fracture or dislocation. No worrisome bone lesions. JOINT: No effusion. SOFT TISSUES: No soft tissue swelling. No radio-opaque foreign body. OTHER: No other significant finding. IMPRESSION: NEGATIVE STUDY OF THE RIGHT KNEE. NO RADIOGRAPHIC EVIDENCE OF ACUTE INJURY. TECHNICAL DOCUMENTATION: JOB ID: [id number] 2010 [employer]- All Rights Reserved Reading location - IP/workstation name: [email or web address]
--- NOTE | 2020-07-08 18:34 | RADIOLOGY REPORT (SQ) ---
EXAM DESCRIPTION: VENOUS UNILATERAL LOWER IMAGES COMPLETED DATE/TIME: 07/08/2020 6:26 pm REASON FOR STUDY: RLE pain COMPARISON: None. TECHNIQUE: Dynamic and static rodriguez scale and color images acquired of the right leg venous system. S elected spectral images acquired with additional compression and augmentation maneuvers. The contrala teral common femoral vein and saphenofemoral junction were also imaged. Images stored on PACS. LIMITATIONS: None. FINDINGS: COMMON FEMORAL: Normal phasicity, compression and augmentation. No visualized echogenic ma terial on rodriguez scale. No defects on color images. FEMORAL: Normal compression and augmentation. No visualized echogenic material on rodriguez scale. No defe cts on color images. POPLITEAL: Normal compression, augmentation. No visualized echogenic material on rodriguez scale. No defec ts on color images. CALF VESSELS: Normal compression, augmentation. No visualized echogenic material on rodriguez scale. No de fects on color images. GSV and SSV: Normal compression, augmentation. No visualized echogenic material on rodriguez scale. No def ects on color images. ANY DEEP VENOUS INSUFFICIENCY: Not evaluated. ANY EVIDENCE OF POPLITEAL CYST: No. OTHER: No other significant finding. CONTRALATERAL COMMON FEMORAL VEIN AND SAPHENOFEMORAL JUNCTION: Normal phasicity, compression and augmentation. No visualized echogenic material on rodriguez scale. No de fects on color images. IMPRESSION: NO EVIDENCE DVT OR SVT IN THE RIGHT LEG. TECHNICAL DOCUMENTATION: JOB ID: [id number] 2010 [employer]- All Rights Reserved Reading location - IP/workstation name: [email or web address]
--- NOTE | 2020-07-08 19:29 | ER Document Report ---
ED General - General Chief Complaint: Leg Pain Stated Complaint: LEFT LEG PAIN Time Seen by Provider: 07/08/20 16:02 Mode of Arrival: Wheelchair Information source: Patient Notes: Patient is a 60-year-old female coming in today with right-sided knee pain that radiates down the lower part of her leg. No known injury. Patient states the knee is slightly swollen and hurts to bear weight. No problems with this knee in the past. No surgeries. TRAVEL OUTSIDE OF THE [place] IN LAST 30 DAYS: No - Related Data Allergies/Adverse Reactions: tramadol Allergy (Verified 07/11/19 15:07) Past Medical History - General Information source: Patient - Social History Smoking Status: Current Every Day Smoker Family History: Reviewed & Not Pertinent - Past Medical History Cardiac Medical History: Reports: Hx Hypertension - not taking meds Pulmonary Medical History: Reports: Hx Bronchitis, Hx COPD Renal/ Medical History: Denies: Hx Peritoneal Dialysis Musculoskeletal Medical History: Reports Hx Arthritis Skin Medical History: Reports Hx Cellulitis Psychiatric Medical History: Reports: Hx Depression Past Surgical History: Reports: Hx Gynecologic Surgery - part of cervix, Hx Hysterectomy - Immunizations Hx Diphtheria, Pertussis, Tetanus Vaccination: Yes Review of Systems - Review of Systems Notes: Constitutional: No fevers. No chills. EENT: No eye redness. No eye pain. No ear pain. No sore throat. Cardiovascular: No chest pain. No palpitations. Respiratory: No cough. No shortness of breath. No respiratory distress. Gastrointestinal: No abdominal pain. No nausea, vomiting, or diarrhea. Genitourinary: Atraumatic. No lesions. No pain. No discharge. Musculoskeletal: + right knee pain Skin: No rash or lesions. Lymphatic: No swollen lymph nodes. Neurologic: No headache. No syncope. Psychiatric: No suicidal or homicidal ideation. Physical Exam - Vital signs Vitals: Temp Pulse Resp BP Pulse Ox 97.8 F 86 16 159/96 H 100 07/08/20 15:58 07/08/20 15:58 07/08/20 15:58 07/08/20 15:58 07/08/20 15:58 - Notes Notes: General: Well-developed, well-nourished. In no acute distress. Non-toxic appearing. Cardiac: Well-perfused. Regular rate and rhythm. No murmurs, rubs, or gallops. Pulmonary: No respiratory distress. No cyanosis. Bilateral lung fiels are clear to auscultation. Abdominal: Non-distended. Non-rigid. Bowels sounds are present in all four quadrants. No guarding or rebound. HEENT: Head is atraumatic. Conjunctivae not reddened. No tearing. PERRL. EOMI. Orbits atraumatic. No periorbital swelling or erythema. Oropharynx is without erythema, swelling, or exudates. Neck: Supple. No adenopathy. No meningismus. Dermatologic: Warm with good turgor. No rash. Atraumatic. Chest: Atraumatic. No chest wall tenderness to palpation. Musculoskeletal: Right lower extremity is examined. Right knee is diffusely tender to palpation. Increased tenderness over the medial aspect. There is no demonstrated ligamentous laxity. Drawer signs are negative. Tenderness with medial tension. No point bony tenderness or deformity. Distal neurovascular exam is intact Genitourinary: Examination deferred Neurologic: No gross neurologic deficits. Psychiatric: Normal mood. Course - Re-evaluation Re-evalutation: 07/08/20 19:26 Venous Doppler ultrasound negative. X-ray of the knee is negative. Physical exam concerning for internal derangement. Will offer Fran wrap and crutches. We will give Ortho on-call if needed. - Vital Signs Vital signs: Temp Pulse Resp BP Pulse Ox 97.8 F 86 16 159/96 H 100 07/08/20 15:58 07/08/20 15:58 07/08/20 15:58 07/08/20 15:58 07/08/20 15:58 - Diagnostic Test Radiology reviewed: Reports reviewed Discharge - Discharge Clinical Impression: Elevated blood pressure reading Internal derangement of knee Qualifiers: Laterality: right Qualified Code(s): M23.91 - Unspecified internal derangement of right knee Condition: Good Disposition: HOME, SELF-CARE Instructions: Suspected Internal Knee Injury ([facility]), Fran Wrap ([facility]), Use of Crutches ([facility]) Prescriptions: Hydrocodone/Acetaminophen [Cougar 5-325 mg Tablet] 1 tab PO Q6HP PRN #10 tablet PRN Reason: Forms: Elevated Blood Pressure Referrals: ALBERT SCHWARTZ JR, DO [ACTIVE PROVISIONAL STAFF] - Follow up as needed
[2020-07-08 20:19] VITALS: BP 162/94
== END 2020-07-08 20:19 | disposition home or self-care (01) ==
LOC: ER 15:51
DX: M23.91 Unspecified internal derangement of right knee (principal); M79.605 Pain in left leg; I10 Essential (primary) hypertension; F17.200 Nicotine dependence, unspecified, uncomplicated; J44.9 Chronic obstructive pulmonary disease, unspecified; Z90.710 Acquired absence of both cervix and uterus
CPT/HCPCS: 93971; 99284